=== PATIENT | male | born 1965 | race Hispanic/Latino ===

== ENCOUNTER 2017-07-05 12:20 | Inpatient (IN) | payer OTHER ==
[~2017-07-05] VITALS: Ht 170.2 cm; Wt 110.2 kg
[2017-07-05] MEDS ORDERED: SODIUM CHLORIDE 0.9% 500ML 500 ML IV STA (12:59)
[2017-07-05] MEDS ORDERED: ASPIRIN 81 MG CHEW TAB PO ONE ×2 (13:00→19:30)
[2017-07-05] MEDS ORDERED: DILTIAZEM HCL VIAL 5 ML ONE (13:09)
[2017-07-05 13:11] LABS: BASOPHILS # (AUTO) 0.1 (0.0-0.1); BASOPHILS % 0.7 % (0.0-1.0); EOSINOPHILS # (AUTO) 0.2 (0.0-0.4); EOSINOPHILS % 1.7 % (0.0-6.0); HEMATOCRIT 44.3 % (38.2-49.6); HEMOGLOBIN 12.2 g/dL (14.0-18.0); LYMPHOCYTES # (AUTO) 2.3 (1.0-3.2); LYMPHOCYTES % 20.9 % (18.0-39.1); MEAN CORPUSCULAR HEMOGLOBIN 20.6 pg (28-32); MEAN CORPUSCULAR HGB CONC 27.5 g/dL (31-35); MEAN CORPUSCULAR VOLUME 74.7 fL (81-99); MONOCYTES # (AUTO) 1.2 (0.2-0.8); MONOCYTES % 11.2 % (4.4-11.3); PLATELET COUNT 346 x10e3/uL (140-360); RED BLOOD COUNT 5.93 x10e6/uL (4.3-5.7); RED CELL DISTRIBUTION WIDTH 19.2 % (11.7-14.4)
[2017-07-05] MEDS ORDERED: DIGOXIN INJ 0.25 MG/ML 2 ML AMP ONE (13:14)
[2017-07-05] MEDS ORDERED: DILTIAZEM HCL 100 ML IV STA ×2 (13:18→18:56)
[2017-07-05] MEDS ORDERED: SODIUM CHLORIDE 0.9% 1000ML 1,000 ML ONE (13:23)
[2017-07-05 13:37] LABS: INR 0.95; PROTHROMBIN TIME 13.1 seconds (11.9-14.5)
[2017-07-05 13:38] LABS: PARTIAL THROMBOPLASTIN TIME 28.5 seconds (23.8-35.5)
[2017-07-05] MEDS ORDERED: METOPROLOL TARTRATE INJ 1 MG/ML VIAL IV ONE ×3 (13:45→20:00)
[2017-07-05 13:46] LABS: ALANINE AMINOTRANSFERASE 36 IU/L (0-55); ALBUMIN 3.1 g/dL (3.5-5.0); ALBUMIN/GLOBULIN RATIO 0.8 (0.8-2.0); ALKALINE PHOSPHATASE 95 IU/L (40-150); ANION GAP 12.4 mmol/L (8-16); BLOOD UREA NITROGEN 15 mg/dL (7-26); BUN/CREATININE RATIO 17 (6-25); CALCIUM 8.9 mg/dL (8.4-10.2); CARBON DIOXIDE 29 mmol/L (22-29); CHLORIDE 102 mmol/L (98-107); CREATINE KINASE 190 IU/L (30-200); CREATININE, SERUM 0.88 mg/dL (0.72-1.25); EST GLOMERULAR FILTRATION RATE > 60 ML/MIN (60-); GLUCOSE 78 mg/dL (74-118); LIPASE 70 U/L (8-78); POTASSIUM 4.4 mmol/L (3.5-5.1); SODIUM 139 mmol/L (136-145)
[2017-07-05 13:52] LABS: ANISOCYTOSIS SLIG; HYPOCHROMASIA MODE; PLATELET ESTIMATE ADEQUATE; PLATELET MORPHOLOGY COMMENT NORMAL; POIKILOCYTOSIS SLIGHT; POLYCHROMASIA FEW; RBC MORPHOLOGY COMMENT NORMAL; TROPONIN I 0.027 ng/mL (0-0.300)
[2017-07-05 13:53] LABS: STOMATOCYTES SLIGHT
[2017-07-05] MEDS ORDERED: DIGOXIN INJ 0.25 MG/ML 2 ML AMP IV STA (14:13)
[2017-07-05] MEDS ORDERED: DILTIAZEM HCL 5 MG/ML 5 ML VIAL IV ONE ×2 (14:15→19:00)
--- NOTE | 2017-07-05 14:18 | Diagnostic Imaging Report ---
PROCEDURE: A single AP view of the chest. COMPARISON: None. INDICATIONS: COUGH, DYSPNEA FINDINGS: Lines/tubes: None. Lungs: Limited by shallow inspiration and body habitus. No focal consolidation. Pleura: There is no pleural effusion or pneumothorax. Heart and mediastinum: Enlarged cardiomediastinal silhouette on this AP view. Bones: No acute bony abnormality. IMPRESSION: Enlarged cardiomediastinal silhouette and mild central vascular congestion, accentuated by low lung volumes and technique. No focal consolidation. Dictated by: Tristan Kong M.D. on 07/05/2017 at 14:26 Electronically approved by: Tristan Kong M.D. on 07/05/2017 at 14:26
[2017-07-05] MEDS ORDERED: ENOXAPARIN SODIUM INJ 100 MG/ML SYR SC STA (15:09)
[2017-07-05] MEDS ORDERED: DILTIAZEM HCL ER 90MG CAPSULE PO ONE (15:15)
[2017-07-05] MEDS ORDERED: ENOXAPARIN SODIUM INJ 100 MG/ML SYR SC ONE (19:00)
[2017-07-05] MEDS ORDERED: DIGOXIN INJ 0.25 MG/ML 2 ML AMP IV ONE (19:00)
[2017-07-05 20:01] LABS: % IRON SATURATION 3 % (15-50); IRON 16 ug/dL (65-175); TOTAL IRON BINDING CAPACITY 469 ug/dL (261-478); TRANSFERRIN 335 mg/dL (174-364)
[2017-07-05] MEDS: PROPAFENONE HCL 150 MG TAB PO SCH (20:27)
[2017-07-05] MEDS: DILTIAZEM HCL 100 ML IV SCH ×2 (20:32→22:27)
[2017-07-05 21:39] LABS: CREATINE KINASE MB 2.6 ng/mL (0.00-5.00); FREE THYROXINE INDEX 2.3345 (1.4-3.8); T3 UPTAKE 31.42 % (22.50-37.00); THYROID STIMULATING HORMONE 0.778 uIU/mL (0.350-4.940); TROPONIN I 0.027 ng/mL (0-0.300)
[2017-07-06] VITALS (62 sets, daily range): BP systolic 65–194; BP diastolic 27–127
[2017-07-06] MEDS: DILTIAZEM HCL 100 ML IV SCH ×5 (00:58→22:32)
[2017-07-06 01:00] LABS: BILIRUBIN,URINE NEGATIVE (NEGATIVE); KETONES,URINE NEGATIVE (NEGATIVE); LEUKOCYTE ESTERASE ,URINE NEGATIVE (NEGATIVE); NITRITE,URINE NEGATIVE (NEGATIVE); PROTEIN,URINE DIPSTICK NEGATIVE (NEGATIVE); URINE UROBILINOGEN 0.2 mg/dL (0.2 - 1)
[2017-07-06 01:01] LABS: CLARITY,URINE CLEAR (CLEAR); COLOR,URINE YELLOW (YELLOW)
[2017-07-06 01:11] LABS: BACTERIA,URINE FEW /HPF; EPITHELIAL CELLS,URINE RARE /LPF; RBC,URINE 0-5 /HPF (0-5); WBC,URINE (MAN) 0-5 /HPF (0-5)
[2017-07-06 05:56] LABS: ALANINE AMINOTRANSFERASE 32 IU/L (0-55); ALBUMIN 3.1 g/dL (3.5-5.0); ALBUMIN/GLOBULIN RATIO 0.7 (0.8-2.0); ALKALINE PHOSPHATASE 93 IU/L (40-150); ANION GAP 12.9 mmol/L (8-16); BLOOD UREA NITROGEN 14 mg/dL (7-26); BUN/CREATININE RATIO 15 (6-25); CALCIUM 8.7 mg/dL (8.4-10.2); CARBON DIOXIDE 32 mmol/L (22-29); CHLORIDE 102 mmol/L (98-107); CREATINE KINASE 192 IU/L (30-200); CREATININE, SERUM 0.91 mg/dL (0.72-1.25); EST GLOMERULAR FILTRATION RATE > 60 ML/MIN (60-); GLUCOSE 106 mg/dL (74-118); POTASSIUM 4.9 mmol/L (3.5-5.1); SODIUM 142 mmol/L (136-145)
[2017-07-06] MEDS: PROPAFENONE HCL 150 MG TAB PO SCH ×3 (05:57→21:29)
[2017-07-06 06:03] LABS: TROPONIN I 0.026 ng/mL (0-0.300)
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
[2017-07-06] MEDS ORDERED: JANUVIA100 MG PO (06:38)
[2017-07-06] MEDS ORDERED: METFORMIN HCL500 MG PO (06:38)
[2017-07-06] MEDS ORDERED: GLIMEPIRIDE2 MG PO (06:38)
[2017-07-06] MEDS ORDERED: CRESTOR10 MG PO (06:38)
[2017-07-06] MEDS ORDERED: LISINOPRIL10 MG PO (06:38)
[2017-07-06] MEDS ORDERED: ASPIR 8181 MG PO (06:38)
[2017-07-06] MEDS ORDERED: ASPIRIN 325 MG TAB EC PO SCH ×2 (09:00)
[2017-07-06] MEDS ORDERED: DILTIAZEM HCL ER 90MG CAPSULE PO SCH (09:00)
[2017-07-06] MEDS ORDERED: ASPIRIN 81 MG CHEW TAB PO SCH (09:52)
[2017-07-06] MEDS ORDERED: ETOMIDATE 2 MG/ML 10 ML INJ IV STA (13:42)
[2017-07-06] MEDS ORDERED: SUCCINYLCHOLINE 200 MG/10 ML SYR IV STA ×2 (13:42)
[2017-07-06] MEDS ORDERED: PROPOFOL IV EMULSION 10MG/ML 100 ML ONE (13:44)
[2017-07-06] MEDS ORDERED: MIDAZOLAM HCL 2 MG/2 ML VIAL IV STA (13:45)
[2017-07-06 13:49] LABS: ABG HCO3 34 mmol/L (23-28); ABG PCO2 84 mmHg (41-51); ABG PH 7.21 (7.31-7.41); ABG PO2 81 mmHg (80-105)
[2017-07-06] MEDS ORDERED: MIDAZOLAM HCL 2 MG/2 ML VIAL ONE (13:54)
[2017-07-06] MEDS ORDERED: PROPOFOL IV EMULSION 10 MG/ML 50 ML VIAL IV PRN (14:00)
[2017-07-06] MEDS: PROPOFOL IV EMULSION 10MG/ML 100 ML IV PRN ×4 (14:33→22:25)
--- NOTE | 2017-07-06 14:47 | Diagnostic Imaging Report ---
PROCEDURE: A single AP view of the chest. COMPARISON: Chest x-ray 07/05/2017 1359. INDICATIONS: ET TUBE PLACEMENT FINDINGS: Lines/tubes: ET tube tip is approximate 1.9 cm from the don. Lungs: Lungs are hypoinflated. Worsening perihilar interstitial opacities. Pleura: There is no pleural effusion or pneumothorax. Heart and mediastinum: Mild cardiomegaly. Bones: No acute bony abnormality. IMPRESSION: 1. Low-lying ET tube with tip 1.9 cm from the don. 2. Worsening interstitial edema. Dictated by: Tal Peña M.D. on 07/06/2017 at 14:55 Electronically approved by: Tal Peña M.D. on 07/06/2017 at 14:55
[2017-07-06 15:06] LABS: CHOL/HDL RATIO 4.5 (3.9-4.7)
[2017-07-06] MEDS: LEVOFLOXACIN 500MG/D5W 100ML 100 ML IV SCH (15:28)
[2017-07-06] MEDS: RIVAROXABAN 20 MG TABLET PO SCH (15:29)
[2017-07-06] MEDS: FAMOTIDINE 20 MG/2 ML VIAL IV SCH (15:29)
[2017-07-06 15:46] LABS: TROPONIN I 0.028 ng/mL (0-0.300)
[2017-07-06] MEDS ORDERED: VANCOMYCIN 1GM/NS 250 ML 250 ML IV ONE (16:00)
--- NOTE | 2017-07-06 16:02 | History and Physical ---
PRIMARY CARE PHYSICIAN: Unknown. CHIEF COMPLAINT: Chest palpitations and shortness of breath. HISTORY OF PRESENT ILLNESS: This is a 51-year-old man who developed chest palpitations and shortness of breath. Here he was found to be in atrial fibrillation with rapid ventricular response. He was started on Cardizem drip in the emergency room. The patient had worsening mental status and worsening shortness of breath. ABG revealed pCO2 of 84 and pH of 7.21. He was intubated, and he was admitted for further evaluation and management. No further history is available at this time. Review of the chest x-ray suggests pneumonia and pulmonary edema. PAST MEDICAL HISTORY: Diabetes mellitus, type 2; hypertension; hyperlipidemia. PAST SURGICAL HISTORY: Unknown. ALLERGIES: PER ELECTRONIC MEDICAL RECORD. FAMILY HISTORY AND SOCIAL HISTORY: Unknown. MEDICATIONS: Per electronic medical record. REVIEW OF SYSTEMS: Unobtainable. PHYSICAL EXAMINATION VITAL SIGNS: Have been reviewed. GENERAL: A tired-appearing man resting in bed. Intubated. HEENT: Anicteric. He has an ET tube in place with some froth at the mouth. CARDIOVASCULAR: Normal S1 and S2. Rapid heart rate. LUNGS: He has very coarse, reduced breath sounds throughout. ABDOMEN: Soft, large. EXTREMITIES: Trace edema. SKIN: Dry. PSYCHIATRIC: Unable to assess. LABS: Reviewed. MEDICATIONS: Reviewed. ASSESSMENT AND PLAN: This is a 51-year-old man. 1. Atrial fibrillation with rapid ventricular response. Echocardiogram done showed normal left ventricular ejection fraction. Will follow up official report. Will continue Cardizem and defer to cardiology service. 2. Acute respiratory failure. He is intubated. Vent care per pulmonary service. 3. Pneumonia. Will utilize Levaquin and obtain sputum culture and follow up. 4. Diabetes mellitus, type 2. Obtain hemoglobin A1c and lipid panel. 5. Hypertension/hypotension. The patient is actually hypotensive with signs of sepsis. He has pneumonia, hypotension and rapid heart rate. These are signs of severe sepsis. He has respiratory failure. Will treat him with antibiotics. Will give 1 dose of IV vancomycin. Monitor closely. Will obtain labs again later today. 6. Prophylaxis: The patient is on Xarelto. Will add Pepcid. 7. Disposition: Monitor closely. Critical care time more than 35 minutes. Job#: [id number]
[2017-07-06 16:24] LABS: ABG HCO3 33 mmol/L (23-28); ABG PCO2 67 mmHg (41-51); ABG PO2 117 mmHg (80-105)
[2017-07-06] MEDS ORDERED: FUROSEMIDE INJ 10 MG/ML 4 ML VIAL IV ONE (20:00)
[2017-07-06 20:29] LABS: BASOPHILS # (AUTO) 0.1 (0.0-0.1); BASOPHILS % 0.6 % (0.0-1.0); EOSINOPHILS # (AUTO) 0.2 (0.0-0.4); EOSINOPHILS % 2.3 % (0.0-6.0); HEMATOCRIT 41.7 % (38.2-49.6); HEMOGLOBIN 11.3 g/dL (14.0-18.0); LYMPHOCYTES # (AUTO) 1.6 (1.0-3.2); LYMPHOCYTES % 19.2 % (18.0-39.1); MEAN CORPUSCULAR HEMOGLOBIN 20.4 pg (28-32); MEAN CORPUSCULAR HGB CONC 27.1 g/dL (31-35); MEAN CORPUSCULAR VOLUME 75.3 fL (81-99); MONOCYTES # (AUTO) 0.9 (0.2-0.8); MONOCYTES % 10.6 % (4.4-11.3); NEUTROPHILS # (AUTO) 5.5 (2.1-6.9); NEUTROPHILS % 67.1 % (38.7-80.0); PLATELET COUNT 302 x10e3/uL (140-360); RED BLOOD COUNT 5.54 x10e6/uL (4.3-5.7); RED CELL DISTRIBUTION WIDTH 19.3 % (11.7-14.4)
[2017-07-06 20:43] LABS: ANION GAP 15.3 mmol/L (8-16); BLOOD UREA NITROGEN 13 mg/dL (7-26); BUN/CREATININE RATIO 17 (6-25); CALCIUM 8.5 mg/dL (8.4-10.2); CARBON DIOXIDE 27 mmol/L (22-29); CHLORIDE 102 mmol/L (98-107); CREATININE, SERUM 0.75 mg/dL (0.72-1.25); EST GLOMERULAR FILTRATION RATE > 60 ML/MIN (60-); GLUCOSE 70 mg/dL (74-118); POTASSIUM 4.3 mmol/L (3.5-5.1); SODIUM 140 mmol/L (136-145)
[2017-07-06] MEDS: FENTANYL CITRATE INJ 2,000 MCG in SODIUM CHLORIDE 0.9% 250ML 210 ML IV PRN ×3 (20:49→22:27)
--- NOTE | 2017-07-06 21:09 | Diagnostic Imaging Report ---
Portable chest x-ray CPT code 02122 INDICATION: Tube placement COMPARISON: Chest x-ray 1401 hours FINDINGS: Frontal view of the chest obtained at 2041 hours. The image is underpenetrated. The distal tip of the ET tube is not visible. An enteric tube extends past the diaphragm. The cardiac silhouette is enlarged. There are worsening perihilar airspace opacities. Lung volumes are low. No large effusions. There is no pneumothorax. The osseous structures are stable. IMPRESSION: 1. Poor visualization of ET tube due to underpenetration of the image. 2. Worsening perihilar airspace opacities. Signed by: Dr. Gail Grove MD on 07/06/2017 9:05 PM
[2017-07-06] MEDS: SIMVASTATIN 40 MG TAB PO SCH (21:29)
[2017-07-06] MEDS: OSELTAMIVIR PHOSPHATE 75 MG CAP PO SCH (21:29)
[2017-07-06 21:38] LABS: HYPOCHROMASIA MODERATE
[2017-07-06 21:39] LABS: POIKILOCYTOSIS T
[2017-07-06 21:40] LABS: ANISOCYTOSIS MODERATE; PLATELET ESTIMATE ADEQUATE; PLATELET MORPHOLOGY COMMENT NORMAL; RBC MORPHOLOGY COMMENT ABNORMAL
--- NOTE | 2017-07-06 21:43 | Consultation ---
DATE OF CONSULTATION: July 06, 2017 Primary care physician: Dr. Jh Jiang. REASON FOR CONSULTATION: Ventilator management. HISTORY OF PRESENT ILLNESS: Mr. Jiang is a 51-year-old male who was sent in by his primary care physician for chest pain, palpitations and shortness of breath. He was found to be in atrial fibrillation and rapid ventricular response. Cardiology evaluated the patient and rate came under control. He was started on Cardizem drip. Patient had worsening mental status and shortness of breath. ABGs revealed pCO2 84 and pH of 7.1 and he was intubated in the emergency room. Patient is obese and body habitus is highly suggestive that patient has sleep apnea. He is currently sedated and intubated and unable to give me any history. REVIEW OF SYSTEMS: Unable to elicit any as the patient is sedated and intubated. PAST MEDICAL HISTORY: Morbid obesity, hypertension, diabetes and likely has history of sleep apnea and I am unsure if it is diagnosed as there is no past medical history available here. PAST SURGICAL HISTORY: Unknown. FAMILY AND SOCIAL HISTORY: Unknown. Unknown history of smoking. PHYSICAL EXAMINATION: VITALS: Temperature 98.7, pulse of 90, blood pressure 103/69, respiratory rate is 18. O2 sat is 96%. Right now he is on FIO2 100%, PEEP of 5, tidal volume of 550 at rate of 16. HEENT: Head atraumatic and normocephalic. Pupils are reactive. NECK: Supple. No JVD. He is intubated with ET tube 8. CHEST: Is clear to auscultation bilaterally, occasional crackles. HEART: S1 and S2 audible. ABDOMEN: Soft, nontender, nondistended. EXTREMITIES: Extremities with 1+ pedal edema. NEUROLOGIC: Sedated and intubated. LABORATORY DATA: White count of 10,000, hemoglobin 12.8, platelets 346,000. Blood gases pH of 7.21, pCO2 of 84, pO2 of 81, bicarb 34. The repeat one at 2 p.m. showed pCO2 of 67. Chest x-ray reviewed and it is showing increased congestion but no focal infiltrate or consolidation. ASSESSMENT AND PLAN: David Jiang is a 51-year-old male, morbidly obese with body habitus highly suggestive of patient having obstructive sleep apnea, was intubated for acute hypercapnic respiratory failure. Chest x-ray revealed no focal infiltrate; however, revealed interstitial edema. Bicarbonate on the initial chemistry was 29, slightly on the higher side which showed that probably patient has chronic hypercapnic respiratory failure. CURRENT PROBLEMS: 1. Acute on chronic hypercapnic respiratory failure, likely due to underlying sleep apnea versus obesity, hyperventilation with no evidence of pneumonia on chest x-ray. 2. Atrial fibrillation with rapid ventricular response. Echocardiogram is done and cardiology is following the patient. 3. Hypertension. 4. Diabetes. PLAN: 1. I will start the patient on fentanyl infusion. He is currently on propofol. 2. Will add Tamiflu and send off influenza antigen. 3. Currently he is on Levaquin which will be continued. 4. Atrial fibrillation management per cardiology. 5. Ventilator setting reviewed. It will reduce the FIO2 to 80%, PEEP to 8 and I have asked the respiratory therapist to wean the FIO2 to keep the oxygen saturation more than or equal to 92%. Total care time spent 50 minutes. Job#: [id number]
[2017-07-07] VITALS (22 sets, daily range): BP systolic 92–154; BP diastolic 60–97
[2017-07-07] MEDS: DILTIAZEM HCL 100 ML IV SCH ×3 (01:17→11:10)
[2017-07-07 01:35] LABS: ABG HCO3 31 mmol/L (23-28); ABG PCO2 44 mmHg (41-51); ABG PH 7.46 (7.31-7.41); ABG PO2 61 mmHg (80-105)
[2017-07-07 01:39] LABS: ABG PH 7.46 (7.31-7.41)
[2017-07-07] MEDS: PROPOFOL IV EMULSION 10MG/ML 100 ML IV PRN ×2 (02:22→02:40)
[2017-07-07] MEDS: PROPAFENONE HCL 150 MG TAB PO SCH ×3 (05:30→22:00)
[2017-07-07] MEDS: FENTANYL CITRATE INJ 2,000 MCG in SODIUM CHLORIDE 0.9% 250ML 210 ML IV PRN (08:05)
[2017-07-07] MEDS: OSELTAMIVIR PHOSPHATE 75 MG CAP PO SCH ×2 (09:00→17:00)
[2017-07-07] MEDS: ASPIRIN 81 MG CHEW TAB PO SCH (09:00)
[2017-07-07] MEDS: FAMOTIDINE 20 MG/2 ML VIAL IV SCH ×2 (09:00→17:00)
[2017-07-07] MEDS: FUROSEMIDE INJ 10 MG/ML 4 ML VIAL IV SCH ×2 (10:05→22:00)
[2017-07-07] MEDS ORDERED: METOPROLOL TARTRATE INJ 1 MG/ML VIAL IV ONE (10:15)
[2017-07-07] MEDS ORDERED: DEXMEDETOMIDINE HCL 200 MCG in SODIUM CHLORIDE 0.9% 50ML 48 ML IV PRN (10:15)
[2017-07-07 10:29] LABS: ANION GAP 14.6 mmol/L (8-16); BLOOD UREA NITROGEN 18 mg/dL (7-26); BUN/CREATININE RATIO 20 (6-25); CALCIUM 8.9 mg/dL (8.4-10.2); CARBON DIOXIDE 29 mmol/L (22-29); CHLORIDE 100 mmol/L (98-107); CREATININE, SERUM 0.91 mg/dL (0.72-1.25); EST GLOMERULAR FILTRATION RATE > 60 ML/MIN (60-); GLUCOSE 107 mg/dL (74-118); POTASSIUM 4.6 mmol/L (3.5-5.1); SODIUM 139 mmol/L (136-145)
[2017-07-07] MEDS ORDERED: PROPAFENONE HCL 150 MG TAB PO SCH (10:30)
--- NOTE | 2017-07-07 11:01 | Cardiology Report ---
DATE OF STUDY: July 05, 2017 ECHOCARDIOGRAM M-MODE: Dilated left atrium. Left ventricular hypertrophy. Borderline left ventricular contractility. Normal mitral and aortic valves. No pericardial effusion. SECTOR SCAN: Dilated left atrium. Left ventricular hypertrophy. Mildly diminished left ventricular contractility. Ejection fraction is approximately 45%. Mitral, aortic and tricuspid valves are grossly normal. There is no pericardial effusion. CARDIAC DOPPLER STUDY WITH COLOR: Trace tricuspid regurgitation. Pulmonary artery systolic pressure estimated at 26 mmHg. CONCLUSIONS 1. Left ventricular hypertrophy with ejection fraction of approximately 45%. 2. Mildly enlarged left atrium, measuring approximately 4.3 cm. Job#: [id number] cc:NICOLAS HERNANDEZ MD
[2017-07-07] MEDS: DEXMEDETOMIDINE HCL 200 MCG in SODIUM CHLORIDE 0.9% 50ML 48 ML IV PRN ×4 (11:15→23:00)
[2017-07-07] MEDS ORDERED: ETOMIDATE 40 MG/ 20ML VIAL IV ONE (14:00)
[2017-07-07] MEDS ORDERED: SUCCINYLCHOLINE CHLORIDE 20 MG/ML 10ML VIAL ONE (14:00)
[2017-07-07 14:34] LABS: ABG HCO3 33 mmol/L (23-28); ABG PCO2 69 mmHg (41-51); ABG PH 7.29 (7.31-7.41); ABG PO2 66 mmHg (80-105)
[2017-07-07] MEDS: LEVOFLOXACIN 500MG/D5W 100ML 100 ML IV SCH (14:45)
[2017-07-07] MEDS: RIVAROXABAN 20 MG TABLET PO SCH (17:00)
--- NOTE | 2017-07-07 21:41 | Diagnostic Imaging Report ---
EXAM: CHEST SINGLE (PORTABLE), AP 1 view DATE: 07/07/2017 5:00 AM Time stamp on exam: 0552 hours INDICATION: Intubated COMPARISON: AP view of the chest July 06, 2017 FINDINGS: LINES/TUBES: Endotracheal tube terminates 3 cm above the don. Nasal/orogastric tube courses below the diaphragm out of field of view. LUNGS: Stable bilateral perihilar atelectasis and likely pulmonary edema. PLEURA: Indeterminate for layering pleural effusions. HEART AND MEDIASTINUM: Stable enlargement of the cardiomediastinal silhouette. BONES AND SOFT TISSUES: No acute findings. IMPRESSION: No interval change. Signed by: Dr. Debbie Becerra M.D. on 07/07/2017 9:37 PM
[2017-07-07] MEDS: SIMVASTATIN 40 MG TAB PO SCH (22:00)
[2017-07-08] VITALS (55 sets, daily range): BP systolic 91–143; BP diastolic 36–92
--- NOTE | 2017-07-08 00:24 | Progress Note ---
DATE: July 07, 2017 TIME OF SERVICE: 6:30 a.m. Overnight, no events. REVIEW OF SYSTEMS: Unobtainable. PHYSICAL EXAM VITAL SIGNS: Reviewed. GENERAL: A tired-appearing man resting in bed. HEENT: Anicteric. ET tube in place. CARDIOVASCULAR: Normal S1/S2. LUNGS: Coarse breath sounds. ABDOMEN: Soft, nontender, nondistended. EXTREMITIES: Trace edema. SKIN: Dry. PSYCHIATRIC: Unable to assess. LABS: Reviewed. MEDICATIONS: Reviewed. ASSESSMENT: A 51-year-old man with 1. Atrial fibrillation with rapid ventricular response. 2. Acute respiratory failure. 3. Pneumonia. 4. Diabetes mellitus, type 2. 5. Hypertension/hypotension. PLAN 1. Continue vent per pulmonary services. 2. Continue AV blocking agents. 3. Treatment for pneumonia. 4. Follow up cultures. 5. Continue Xarelto. 6. Discontinue Tamiflu as flu screening was negative. 7. Continue care in the ICU. CRITICAL CARE TIME: More than 35 minutes. Job#: [id number] CQ
[2017-07-08] MEDS: PROPOFOL IV EMULSION 10MG/ML 100 ML IV PRN (01:00)
[2017-07-08 05:47] LABS: BASOPHILS % 0.3 % (0.0-1.0); EOSINOPHILS # (AUTO) 0.1 (0.0-0.4); EOSINOPHILS % 0.4 % (0.0-6.0); HEMATOCRIT 41.7 % (38.2-49.6); LYMPHOCYTES # (AUTO) 1.3 (1.0-3.2); LYMPHOCYTES % 9.7 % (18.0-39.1); MEAN CORPUSCULAR HEMOGLOBIN 20.8 pg (28-32); MEAN CORPUSCULAR HGB CONC 28.8 g/dL (31-35); MEAN CORPUSCULAR VOLUME 72.4 fL (81-99); MONOCYTES # (AUTO) 1.5 (0.2-0.8); MONOCYTES % 11.3 % (4.4-11.3); NEUTROPHILS # (AUTO) 10.4 (2.1-6.9); NEUTROPHILS % 77.8 % (38.7-80.0); PLATELET COUNT 300 x10e3/uL (140-360); RED BLOOD COUNT 5.76 x10e6/uL (4.3-5.7); RED CELL DISTRIBUTION WIDTH 19.6 % (11.7-14.4)
[2017-07-08 05:58] LABS: ANION GAP 14.8 mmol/L (8-16); BLOOD UREA NITROGEN 17 mg/dL (7-26); BUN/CREATININE RATIO 19 (6-25); CALCIUM 8.7 mg/dL (8.4-10.2); CARBON DIOXIDE 27 mmol/L (22-29); CHLORIDE 99 mmol/L (98-107); CREATININE, SERUM 0.91 mg/dL (0.72-1.25); EST GLOMERULAR FILTRATION RATE > 60 ML/MIN (60-); GLUCOSE 155 mg/dL (74-118); POTASSIUM 3.8 mmol/L (3.5-5.1); SODIUM 137 mmol/L (136-145)
--- NOTE | 2017-07-08 06:52 | Diagnostic Imaging Report ---
EXAM: CHEST SINGLE (PORTABLE), AP 1 view DATE: 07/08/2017 5:48 AM Time stamp on exam: 0552 hours INDICATION: Intubated COMPARISON: AP view of the chest July 07, 2017 FINDINGS: LINES/TUBES: Stable endotracheal tube and nasal/orogastric tube. LUNGS: Stable bilateral perihilar atelectasis and likely pulmonary edema PLEURA: Indeterminate for layering pleural effusions bilaterally HEART AND MEDIASTINUM: Stable enlargement BONES AND SOFT TISSUES: No acute findings. IMPRESSION: No interval change Signed by: Dr. Debbie Becerra M.D. on 07/08/2017 6:48 AM
[2017-07-08 07:59] LABS: LYMPHOCYTES % (MANUAL) 6 % (19-48); MONOCYTES % (MANUAL) 10 % (3.4-9.0); NEUTROPHILS % (MANUAL) 82 % (40-74)
[2017-07-08 08:04] LABS: ANISOCYTOSIS SLIGHT; POLYCHROMASIA FEW
[2017-07-08 08:05] LABS: HYPOCHROMASIA SLIGHT; PLATELET ESTIMATE ADEQUATE; PLATELET MORPHOLOGY COMMENT NORMAL
[2017-07-08 08:06] LABS: RBC MORPHOLOGY COMMENT NORMAL
[2017-07-08] MEDS: FUROSEMIDE INJ 10 MG/ML 4 ML VIAL IV SCH ×3 (09:00→22:06)
[2017-07-08] MEDS: OSELTAMIVIR PHOSPHATE 75 MG CAP PO SCH ×2 (09:00→16:30)
[2017-07-08] MEDS: ASPIRIN 81 MG CHEW TAB PO SCH (09:00)
[2017-07-08] MEDS: FAMOTIDINE 20 MG/2 ML VIAL IV SCH ×2 (09:00→17:00)
[2017-07-08] MEDS: DEXMEDETOMIDINE HCL 200 MCG in SODIUM CHLORIDE 0.9% 50ML 48 ML IV PRN ×2 (09:04→18:00)
[2017-07-08] MEDS: DILTIAZEM HCL 100 ML IV SCH ×2 (10:00→13:00)
[2017-07-08] MEDS ORDERED: DEXTROSE 50% SYRINGE 50 ML IV PRN (11:45)
[2017-07-08] MEDS ORDERED: ACETAMINOPHEN 325 MG TAB ONE (12:06)
[2017-07-08 12:13] LABS: ABG HCO3 32 mmol/L (23-28); ABG PCO2 40 mmHg (41-51); ABG PO2 57 mmHg (80-105)
[2017-07-08] MEDS: AZITHROMYCIN 500MG/NS 250 ML 250 ML IV SCH (12:20)
[2017-07-08] MEDS: ACETAMINOPHEN 325 MG TAB PO PRN ×2 (12:20→22:58)
[2017-07-08] MEDS: INSULIN REGULAR, HUMAN 100 UNIT/1 ML 3ML VIAL SQ SCH ×2 (12:30→18:09)
[2017-07-08] MEDS: PIPER-TAZ 3.375 GM 50 ML IV SCH ×2 (13:30→22:06)
[2017-07-08] MEDS: PROPAFENONE HCL 150 MG TAB PO SCH ×2 (14:00→22:06)
[2017-07-08] MEDS ORDERED: INSULIN REGULAR, HUMAN 100 UNIT/1 ML 3ML VIAL SQ SCH (16:30)
[2017-07-08] MEDS: RIVAROXABAN 20 MG TABLET PO SCH (16:30)
[2017-07-08] MEDS ORDERED: SODIUM CHLORIDE 0.9% 50ML 50 ML ONE (21:15)
[2017-07-08] MEDS: SIMVASTATIN 40 MG TAB PO SCH (22:06)
--- NOTE | 2017-07-08 22:22 | Diagnostic Imaging Report ---
EXAM: CHEST XRAY LINE PLACEMENT, AP 1 view DATE: 07/08/2017 9:20 PM Time stamp on exam: 2148 hours INDICATION: PICC placement COMPARISON: AP view of the chest May 08, 2018 at 0552 hours FINDINGS: LINES/TUBES: Interval placement of right approach PICC with the tip at expected location of the atriocaval junction. Stable endotracheal tube and nasal/orogastric tube. LUNGS: Stable bilateral perihilar atelectasis and likely pulmonary edema area and PLEURA: No effusions or pneumothorax. HEART AND MEDIASTINUM: Stable BONES AND SOFT TISSUES: No acute findings. IMPRESSION: Interval placement of right approach PICC with tip at expected location of the atriocaval junction. Otherwise no interval change in appearance of the chest. Signed by: Dr. Debbie Becerra M.D. on 07/08/2017 10:19 PM
[2017-07-09] VITALS (68 sets, daily range): BP systolic 61–124; BP diastolic 22–87
[2017-07-09] MEDS: INSULIN REGULAR, HUMAN 100 UNIT/1 ML 3ML VIAL SQ SCH ×4 (00:31→18:00)
[2017-07-09] MEDS: DILTIAZEM HCL 100 ML IV SCH (01:18)
[2017-07-09] MEDS: DEXMEDETOMIDINE HCL 200 MCG in SODIUM CHLORIDE 0.9% 50ML 48 ML IV PRN ×2 (01:18→13:29)
[2017-07-09] MEDS: PIPER-TAZ 3.375 GM 50 ML IV SCH ×3 (04:34→20:00)
[2017-07-09] MEDS: FUROSEMIDE INJ 10 MG/ML 4 ML VIAL IV SCH ×3 (05:04→22:00)
[2017-07-09] MEDS: PROPAFENONE HCL 150 MG TAB PO SCH ×3 (05:05→22:00)
[2017-07-09 05:37] LABS: BASOPHILS # (AUTO) 0.1 (0.0-0.1); BASOPHILS % 0.3 % (0.0-1.0); EOSINOPHILS # (AUTO) 0.1 (0.0-0.4); EOSINOPHILS % 0.5 % (0.0-6.0); HEMATOCRIT 42.7 % (38.2-49.6); HEMOGLOBIN 11.9 g/dL (14.0-18.0); LYMPHOCYTES # (AUTO) 1.7 (1.0-3.2); LYMPHOCYTES % 11.2 % (18.0-39.1); MEAN CORPUSCULAR HEMOGLOBIN 20.4 pg (28-32); MEAN CORPUSCULAR HGB CONC 27.9 g/dL (31-35); MEAN CORPUSCULAR VOLUME 73.2 fL (81-99); MONOCYTES # (AUTO) 1.7 (0.2-0.8); MONOCYTES % 11.2 % (4.4-11.3); NEUTROPHILS # (AUTO) 11.6 (2.1-6.9); NEUTROPHILS % 75.1 % (38.7-80.0); PLATELET COUNT 255 x10e3/uL (140-360); RED BLOOD COUNT 5.83 x10e6/uL (4.3-5.7); RED CELL DISTRIBUTION WIDTH 19.8 % (11.7-14.4)
[2017-07-09 06:01] LABS: ANION GAP 14.4 mmol/L (8-16); BLOOD UREA NITROGEN 18 mg/dL (7-26); BUN/CREATININE RATIO 18 (6-25); CARBON DIOXIDE 31 mmol/L (22-29); CHLORIDE 98 mmol/L (98-107); CREATININE, SERUM 0.99 mg/dL (0.72-1.25); EST GLOMERULAR FILTRATION RATE > 60 ML/MIN (60-); GLUCOSE 177 mg/dL (74-118); MAGNESIUM 1.9 MG/DL (1.3-2.1); POTASSIUM 3.4 mmol/L (3.5-5.1); SODIUM 140 mmol/L (136-145)
[2017-07-09] MEDS: OSELTAMIVIR PHOSPHATE 75 MG CAP PO SCH ×2 (08:57→16:34)
[2017-07-09] MEDS: FAMOTIDINE 20 MG/2 ML VIAL IV SCH ×2 (08:57→16:33)
[2017-07-09] MEDS: ASPIRIN 81 MG CHEW TAB PO SCH (08:57)
[2017-07-09] MEDS ORDERED: POTASSIUM CHLORIDE 10MEQ/100ML 100 ML IV ONE (10:45)
[2017-07-09] MEDS: AZITHROMYCIN 500MG/NS 250 ML 250 ML IV SCH (11:30)
[2017-07-09 12:49] LABS: ABG HCO3 35 mmol/L (23-28); ABG PCO2 46 mmHg (41-51); ABG PH 7.48 (7.31-7.41); ABG PO2 54 mmHg (80-105)
[2017-07-09] MEDS: PROPOFOL IV EMULSION 10MG/ML 100 ML IV PRN (13:30)
--- NOTE | 2017-07-09 14:52 | Diagnostic Imaging Report ---
PROCEDURE: CT scan of the chest WITH intravenous contrast, using standard protocol. TECHNIQUE: The chest was scanned utilizing a multidetector helical scanner from the lung apex through the level of the adrenal glands after the IV administration of 55 cc of Isovue 370. Coronal and sagittal multiplanar reformations were obtained. COMPARISON: None. INDICATIONS: PULMONARY EMBOLISM FINDINGS: Lines/tubes: Endotracheal tube has distal tip approximately 3.9 cm above the don. Enteric tube in place, with distal tip in the proximal stomach fundus. Right-sided PICC line has distal tip in the right atrium. Lungs and Airways: No filling defects in the main, right or left pulmonary arteries to their segmental levels to suggest pulmonary embolism. Bilateral lower lobe moderate compressive atelectasis and mild compressive atelectasis of the right upper lobe. Focal ground glass opacity in the right upper lobe (for example series 3, images 34). Linear opacities in the right upper lobe (series 3, image 40). No pulmonary nodules. Mild centrilobular septal thickening in the upper lobes. Airways are clear, without endobronchial lesions. Pleura: Small to moderate right and small left pleural effusions. Heart and mediastinum: Thyroid is unremarkable. Moderate cardiomegaly. Mild atherosclerotic calcification of the coronary arteries and minimal calcification of the thoracic aortic arch. Main pulmonary artery is enlarged, measuring 3.6 cm. Lymph nodes: Several mildly prominent, although subcentimeter upper paratracheal, and lower paratracheal lymph nodes are identified. No enlarged mediastinal, hilar or axillary lymph nodes.. Abdomen: Limited contrast-enhanced views of the upper abdomen show no abnormality within the visualized liver and spleen. Adrenal glands are not imaged. Bones: No aggressive lytic or blastic lesion. Multilevel degenerative disc changes in the thoracic spine. IMPRESSION: 1. no CT evidence of pulmonary embolism to the segmental level. 2. Small to moderate right and small left pleural effusions with moderate compressive atelectasis of the lower lobes and mild compressive atelectasis of the right upper lobe. 3. Moderate cardiomegaly. Mild centrilobular septal thickening and focal ground glass opacities in the right upper lobe may be secondary to edema/fluid overload/decompensated CHF. 4. Enlarged main pulmonary artery, suggesting pulmonary hypertension. 5. Subcentimeter lymph nodes in the mediastinum are likely reactive. No enlarged mediastinal, hilar, or axillary lymph nodes. 6. Enteric tube has distal tip in the proximal fundus. Further advancement is recommended. Ernesto Jeffers M.D. Dictated by: Ernesto Jeffers M.D. on 07/09/2017 at 15:00 Electronically approved by: Ernesto Jeffers M.D. on 07/09/2017 at 15:00
[2017-07-09] MEDS ORDERED: DIGOXIN INJ 0.25 MG/ML 2 ML AMP IV ONE (16:30)
[2017-07-09] MEDS: RIVAROXABAN 20 MG TABLET PO SCH (16:34)
[2017-07-09] MEDS ORDERED: PROPAFENONE HCL 150 MG TAB PO ONE (16:45)
[2017-07-09] MEDS ORDERED: PROPOFOL IV EMULSION 10MG/ML 100 ML ONE (18:55)
[2017-07-09] MEDS ORDERED: DILTIAZEM HCL IV SOLN 125 MG in SODIUM CHLORIDE 0.9% 100 ML 100 ML IV PRN (19:45)
[2017-07-09] MEDS: SIMVASTATIN 20 MG TAB PO SCH (21:00)
[2017-07-09] MEDS ORDERED: SODIUM CHLORIDE 0.9% 50ML 50 ML ONE (21:44)
[2017-07-09] MEDS ORDERED: IOPAMIDOL 370 MG/ML 200 ML INFUS..BTL INJ ONE (21:44)
[2017-07-10] VITALS (48 sets, daily range): BP systolic 94–125; BP diastolic 44–97
[2017-07-10 05:23] LABS: BASOPHILS # (AUTO) 0.1 (0.0-0.1); BASOPHILS % 0.6 % (0.0-1.0); EOSINOPHILS # (AUTO) 0.3 (0.0-0.4); EOSINOPHILS % 2.4 % (0.0-6.0); HEMATOCRIT 43.7 % (38.2-49.6); HEMOGLOBIN 12.1 g/dL (14.0-18.0); LYMPHOCYTES # (AUTO) 1.7 (1.0-3.2); LYMPHOCYTES % 12.3 % (18.0-39.1); MEAN CORPUSCULAR HEMOGLOBIN 20.5 pg (28-32); MEAN CORPUSCULAR HGB CONC 27.7 g/dL (31-35); MEAN CORPUSCULAR VOLUME 74.2 fL (81-99); MONOCYTES # (AUTO) 1.4 (0.2-0.8); MONOCYTES % 10.2 % (4.4-11.3); NEUTROPHILS # (AUTO) 10.1 (2.1-6.9); NEUTROPHILS % 74.1 % (38.7-80.0); PLATELET COUNT 240 x10e3/uL (140-360); RED BLOOD COUNT 5.89 x10e6/uL (4.3-5.7); RED CELL DISTRIBUTION WIDTH 19.8 % (11.7-14.4)
[2017-07-10 05:43] LABS: ANION GAP 15.5 mmol/L (8-16); BLOOD UREA NITROGEN 22 mg/dL (7-26); BUN/CREATININE RATIO 20 (6-25); CALCIUM 9.4 mg/dL (8.4-10.2); CARBON DIOXIDE 32 mmol/L (22-29); CHLORIDE 98 mmol/L (98-107); CREATININE, SERUM 1.12 mg/dL (0.72-1.25); EST GLOMERULAR FILTRATION RATE > 60 ML/MIN (60-); GLUCOSE 155 mg/dL (74-118); MAGNESIUM 1.9 MG/DL (1.3-2.1); POTASSIUM 3.5 mmol/L (3.5-5.1); SODIUM 142 mmol/L (136-145)
[2017-07-10] MEDS: PIPER-TAZ 3.375 GM 50 ML IV SCH ×3 (05:56→20:00)
[2017-07-10] MEDS: FUROSEMIDE INJ 10 MG/ML 4 ML VIAL IV SCH ×3 (05:56→23:30)
[2017-07-10] MEDS: PROPAFENONE HCL 150 MG TAB PO SCH ×2 (05:57→14:54)
[2017-07-10] MEDS: INSULIN REGULAR, HUMAN 100 UNIT/1 ML 3ML VIAL SQ SCH ×4 (06:37→18:18)
[2017-07-10] MEDS ORDERED: ALTEPLASE RECOMBINANT 2 MG/2 ML VIAL IV PRN (08:00)
[2017-07-10] MEDS: FAMOTIDINE 20 MG/2 ML VIAL IV SCH ×2 (09:04→18:23)
[2017-07-10] MEDS: ASPIRIN 81 MG CHEW TAB PO SCH (09:04)
[2017-07-10] MEDS: OSELTAMIVIR PHOSPHATE 75 MG CAP PO SCH ×2 (09:04→17:00)
[2017-07-10] MEDS ORDERED: DIGOXIN INJ 0.25 MG/ML 2 ML AMP ONE (09:38)
[2017-07-10] MEDS ORDERED: DIGOXIN INJ 0.25 MG/ML 2 ML AMP IV ONE (10:00)
[2017-07-10] MEDS: AZITHROMYCIN 500MG/NS 250 ML 250 ML IV SCH (11:30)
[2017-07-10] MEDS ORDERED: MIDAZOLAM HCL 2 MG/2 ML VIAL ONE (11:54)
[2017-07-10] MEDS: MIDAZOLAM HCL 2 MG/2 ML VIAL IV PRN ×2 (12:00→12:02)
[2017-07-10] MEDS: VANCOMYCIN 1GM/NS 250 ML 250 ML IV SCH (12:49)
[2017-07-10] MEDS: DEXMEDETOMIDINE HCL 200 MCG in SODIUM CHLORIDE 0.9% 50ML 48 ML IV PRN (12:50)
--- NOTE | 2017-07-10 13:12 | Operative Report ---
DATE OF PROCEDURE: ATTENDING PHYSICIAN: Dr. Butts PROCEDURE: Cardioversion. INDICATIONS: Atrial fibrillation with rapid ventricular response. The patient is on the ventilator and has propofol, although he is moderately awake. Consent is obtained for elective cardioversion. Patches were placed on his chest and back. He was given an additional total of 4 mg of Versed. With respiratory therapy bagging his endotracheal tube, he was given a single shock of 120 joules synchronized with successful cardioversion to sinus rhythm. Post EKG shows sinus rhythm without any ST or T changes. He will continue his previous medications of Rythmol, Xarelto and Cardizem drip. ASSESSMENT 1. Successful cardioversion to sinus rhythm. 2. No complications. The patient is waking up now and seems intact. Job#: [id number] cc:MD JAYDEN BOYLE M.D. MING JEANG, MD
[2017-07-10] MEDS: PROPOFOL IV EMULSION 10MG/ML 100 ML IV PRN (14:54)
[2017-07-10] MEDS: RIVAROXABAN 20 MG TABLET PO SCH (17:00)
[2017-07-10 18:19] LABS: ABG HCO3 37 mmol/L (23-28); ABG PCO2 53 mmHg (41-51); ABG PH 7.45 (7.31-7.41); ABG PO2 66 mmHg (80-105)
[2017-07-10] MEDS: SIMVASTATIN 20 MG TAB PO SCH (22:00)
[2017-07-11] VITALS (53 sets, daily range): BP systolic 94–124; BP diastolic 55–79
[2017-07-11] MEDS: VANCOMYCIN 1GM/NS 250 ML 250 ML IV SCH ×3 (01:00→22:19)
[2017-07-11] MEDS: PROPAFENONE HCL 150 MG TAB PO SCH ×4 (01:45→22:00)
[2017-07-11] MEDS: PIPER-TAZ 3.375 GM 50 ML IV SCH ×3 (04:36→20:00)
[2017-07-11 05:32] LABS: BASOPHILS # (AUTO) 0.1 (0.0-0.1); BASOPHILS % 0.5 % (0.0-1.0); EOSINOPHILS # (AUTO) 0.5 (0.0-0.4); EOSINOPHILS % 4.3 % (0.0-6.0); HEMATOCRIT 41.7 % (38.2-49.6); HEMOGLOBIN 11.4 g/dL (14.0-18.0); LYMPHOCYTES # (AUTO) 1.2 (1.0-3.2); LYMPHOCYTES % 11.1 % (18.0-39.1); MEAN CORPUSCULAR HEMOGLOBIN 20.7 pg (28-32); MEAN CORPUSCULAR HGB CONC 27.3 g/dL (31-35); MEAN CORPUSCULAR VOLUME 75.8 fL (81-99); MONOCYTES # (AUTO) 1.1 (0.2-0.8); NEUTROPHILS # (AUTO) 7.6 (2.1-6.9); NEUTROPHILS % 72.8 % (38.7-80.0); PLATELET COUNT 236 x10e3/uL (140-360); RED CELL DISTRIBUTION WIDTH 19.9 % (11.7-14.4)
[2017-07-11] MEDS: FUROSEMIDE INJ 10 MG/ML 4 ML VIAL IV SCH ×3 (06:00→22:40)
[2017-07-11 06:05] LABS: ANION GAP 12.4 mmol/L (8-16); BLOOD UREA NITROGEN 23 mg/dL (7-26); BUN/CREATININE RATIO 21 (6-25); CALCIUM 9.2 mg/dL (8.4-10.2); CARBON DIOXIDE 35 mmol/L (22-29); CHLORIDE 95 mmol/L (98-107); CREATININE, SERUM 1.11 mg/dL (0.72-1.25); EST GLOMERULAR FILTRATION RATE > 60 ML/MIN (60-); GLUCOSE 162 mg/dL (74-118); MAGNESIUM 1.8 MG/DL (1.3-2.1); POTASSIUM 3.4 mmol/L (3.5-5.1); SODIUM 139 mmol/L (136-145)
[2017-07-11] MEDS: INSULIN REGULAR, HUMAN 100 UNIT/1 ML 3ML VIAL SQ SCH ×4 (06:35→18:00)
--- NOTE | 2017-07-11 06:36 | Diagnostic Imaging Report ---
EXAM: CHEST SINGLE (PORTABLE), AP 1 view DATE: 07/11/2017 5:15 AM Time stamp on exam: 0529 hours INDICATION: CHF COMPARISON: AP view of the chest July 08, 2017 FINDINGS: LINES/TUBES: Stable endotracheal tube and poorly visualized nasal/orogastric tube. The right approach PICC is now pointing cranially and coiled within the internal jugular vein. LUNGS: Stable bilateral perihilar atelectasis and likely pulmonary edema PLEURA: No effusions or pneumothorax. HEART AND MEDIASTINUM: Stable appearance BONES AND SOFT TISSUES: No acute findings. IMPRESSION: The tip of a right approach PICC is now coursing cranially and coiled within the right internal jugular vein. Signed by: Dr. Debbie Becerra M.D. on 07/11/2017 6:32 AM
[2017-07-11] MEDS: DEXMEDETOMIDINE HCL 200 MCG in SODIUM CHLORIDE 0.9% 50ML 48 ML IV PRN (08:57)
[2017-07-11] MEDS: OSELTAMIVIR PHOSPHATE 75 MG CAP PO SCH ×2 (09:49→17:56)
[2017-07-11] MEDS: FAMOTIDINE 20 MG/2 ML VIAL IV SCH ×2 (09:49→17:43)
[2017-07-11] MEDS: ASPIRIN 81 MG CHEW TAB PO SCH (09:49)
[2017-07-11] MEDS ORDERED: POTASSIUM CHLORIDE 20 MEQ TAB CR PO PRN (10:30)
--- NOTE | 2017-07-11 10:58 | Diagnostic Imaging Report ---
EXAM: CHEST XRAY LINE PLACEMENT DATE: 07/11/2017 10:11 AM INDICATION: PICC line COMPARISON: 07/11/2017 at 0529 FINDINGS: ET tube and NG tube stable. Right PICC present with tip overlying SVC. Image quality degraded by body habitus, low lung volumes, and underpenetration. Prominence of the cardiac silhouette, probable mild edema, and possible trace effusions. IMPRESSION: Right PICC placement. Exam otherwise similar given limitations. Signed by: Dr. Abdoulaye Sterling MD on 07/11/2017 10:54 AM
[2017-07-11] MEDS: AZITHROMYCIN 500MG/NS 250 ML 250 ML IV SCH (12:30)
[2017-07-11] MEDS: RIVAROXABAN 20 MG TABLET PO SCH (17:56)
[2017-07-11] MEDS ORDERED: LACTULOSE SYRUP 20 GM/30 ML UDC PO PRN (18:00)
[2017-07-11] MEDS: SIMVASTATIN 20 MG TAB PO SCH (21:00)
[2017-07-11] MEDS ORDERED: SODIUM CHLORIDE 0.9% 250ML 250 ML ONE (21:59)
[2017-07-11] MEDS: PROPOFOL IV EMULSION 10MG/ML 100 ML IV PRN (22:40)
[2017-07-12] VITALS (76 sets, daily range): BP systolic 91–162; BP diastolic 52–83
[2017-07-12] MEDS: PROPAFENONE HCL 150 MG TAB PO SCH ×3 (05:10→22:00)
[2017-07-12] MEDS: FUROSEMIDE INJ 10 MG/ML 4 ML VIAL IV SCH ×3 (05:25→22:00)
[2017-07-12] MEDS: PIPER-TAZ 3.375 GM 50 ML IV SCH ×3 (05:25→20:02)
[2017-07-12] MEDS: INSULIN REGULAR, HUMAN 100 UNIT/1 ML 3ML VIAL SQ SCH ×4 (05:27→19:15)
[2017-07-12] MEDS: PROPOFOL IV EMULSION 10MG/ML 100 ML IV PRN (06:04)
--- NOTE | 2017-07-12 06:20 | Diagnostic Imaging Report ---
EXAM: CHEST SINGLE (PORTABLE), AP 1 view DATE: 07/12/2017 4:39 AM Time stamp on exam: 0515 hours INDICATION: Intubation COMPARISON: AP view of the chest July 11, 2017 FINDINGS: LINES/TUBES: Stable position endotracheal tube, right approach PICC and partially visualized nasal/orogastric tube. LUNGS: Stable bilateral interstitial and alveolar opacities. PLEURA: Indeterminate for small bilateral layering pleural effusions. HEART AND MEDIASTINUM: Stable appearance BONES AND SOFT TISSUES: No acute findings. IMPRESSION: No interval change Signed by: Dr. Debbie Becerra M.D. on 07/12/2017 6:17 AM
[2017-07-12 06:32] LABS: BASOPHILS # (AUTO) 0.1 (0.0-0.1); BASOPHILS % 0.9 % (0.0-1.0); EOSINOPHILS # (AUTO) 0.5 (0.0-0.4); EOSINOPHILS % 5.7 % (0.0-6.0); HEMATOCRIT 42.3 % (38.2-49.6); HEMOGLOBIN 11.4 g/dL (14.0-18.0); LYMPHOCYTES % 10.9 % (18.0-39.1); MEAN CORPUSCULAR HEMOGLOBIN 20.8 pg (28-32); MEAN CORPUSCULAR VOLUME 77.3 fL (81-99); MONOCYTES % 10.4 % (4.4-11.3); NEUTROPHILS # (AUTO) 6.6 (2.1-6.9); NEUTROPHILS % 71.7 % (38.7-80.0); PLATELET COUNT 218 x10e3/uL (140-360); RED BLOOD COUNT 5.47 x10e6/uL (4.3-5.7); RED CELL DISTRIBUTION WIDTH 19.9 % (11.7-14.4)
[2017-07-12 06:45] LABS: ANION GAP 15.5 mmol/L (8-16); BLOOD UREA NITROGEN 23 mg/dL (7-26); BUN/CREATININE RATIO 27 (6-25); CALCIUM 9.4 mg/dL (8.4-10.2); CARBON DIOXIDE 35 mmol/L (22-29); CHLORIDE 98 mmol/L (98-107); CREATININE, SERUM 0.84 mg/dL (0.72-1.25); EST GLOMERULAR FILTRATION RATE > 60 ML/MIN (60-); GLUCOSE 173 mg/dL (74-118); MAGNESIUM 2.2 MG/DL (1.3-2.1); POTASSIUM 3.5 mmol/L (3.5-5.1); SODIUM 145 mmol/L (136-145)
[2017-07-12 08:00] LABS: ANISOCYTOSIS SLIGHT; HYPOCHROMASIA SLIGHT; PLATELET ESTIMATE ADEQUATE; PLATELET MORPHOLOGY COMMENT FEW LARGE; RBC MORPHOLOGY COMMENT NORMAL
[2017-07-12 08:49] LABS: ABG HCO3 40 mmol/L (23-28); ABG PCO2 56 mmHg (41-51); ABG PH 7.46 (7.31-7.41); ABG PO2 57 mmHg (80-105)
[2017-07-12] MEDS: FAMOTIDINE 20 MG/2 ML VIAL IV SCH ×2 (09:00→19:15)
[2017-07-12] MEDS: ASPIRIN 81 MG CHEW TAB PO SCH (09:00)
[2017-07-12] MEDS: IRON SUCROSE 100 MG in SODIUM CHLORIDE 0.9% 100 ML 100 ML IV SCH (09:30)
[2017-07-12] MEDS: OSELTAMIVIR PHOSPHATE 75 MG CAP PO SCH ×2 (09:59→19:15)
[2017-07-12] MEDS: VANCOMYCIN 1GM/NS 250 ML 250 ML IV SCH ×2 (13:10→23:04)
[2017-07-12] MEDS: AZITHROMYCIN 500MG/NS 250 ML 250 ML IV SCH (14:30)
[2017-07-12] MEDS ORDERED: METHYLPREDNISOLONE SOD SUCC 125 MG/2ML VIAL IV NR (16:00)
[2017-07-12] MEDS ORDERED: POTASSIUM CHLORIDE 10MEQ/100ML 100 ML ONE (16:00)
[2017-07-12] MEDS ORDERED: POTASSIUM CHLORIDE 20MEQ/100ML 100 ML IV ONE (16:00)
[2017-07-12] MEDS ORDERED: SODIUM CHLORIDE 0.9% IV PRN (19:00)
[2017-07-12] MEDS ORDERED: DEXMEDETOMIDINE HCL 1,000 MCG in SODIUM CHLORIDE 0.9% 250ML 240 ML IV PRN (19:00)
[2017-07-12] MEDS ORDERED: DEXMEDETOMIDINE HCL IV PRN (19:00)
[2017-07-12] MEDS: RIVAROXABAN 20 MG TABLET PO SCH (19:15)
[2017-07-12] MEDS: SIMVASTATIN 20 MG TAB PO SCH (21:00)
[2017-07-12] MEDS: METHYLPREDNISOLONE SOD SUCC 125 MG/2ML VIAL IV SCH (22:00)
[2017-07-13] VITALS (90 sets, daily range): BP systolic 109–175; BP diastolic 60–121
[2017-07-13] MEDS: INSULIN REGULAR, HUMAN 100 UNIT/1 ML 3ML VIAL SQ SCH ×4 (00:08→18:00)
[2017-07-13] MEDS: PROPOFOL IV EMULSION 10MG/ML 100 ML IV PRN (02:07)
[2017-07-13] MEDS: PIPER-TAZ 3.375 GM 50 ML IV SCH ×3 (04:12→20:29)
[2017-07-13 06:01] LABS: BASOPHILS % 0.4 % (0.0-1.0); EOSINOPHILS % 0.1 % (0.0-6.0); HEMATOCRIT 42.8 % (38.2-49.6); HEMOGLOBIN 11.7 g/dL (14.0-18.0); LYMPHOCYTES # (AUTO) 0.7 (1.0-3.2); LYMPHOCYTES % 7.1 % (18.0-39.1); MEAN CORPUSCULAR HEMOGLOBIN 20.9 pg (28-32); MEAN CORPUSCULAR HGB CONC 27.3 g/dL (31-35); MEAN CORPUSCULAR VOLUME 76.3 fL (81-99); MONOCYTES # (AUTO) 0.2 (0.2-0.8); MONOCYTES % 1.8 % (4.4-11.3); NEUTROPHILS # (AUTO) 8.5 (2.1-6.9); NEUTROPHILS % 89.2 % (38.7-80.0); PLATELET COUNT 259 x10e3/uL (140-360); RED BLOOD COUNT 5.61 x10e6/uL (4.3-5.7); RED CELL DISTRIBUTION WIDTH 19.7 % (11.7-14.4)
[2017-07-13] MEDS: FUROSEMIDE INJ 10 MG/ML 4 ML VIAL IV SCH ×3 (06:12→22:01)
[2017-07-13] MEDS: PROPAFENONE HCL 150 MG TAB PO SCH ×3 (06:12→22:02)
[2017-07-13] MEDS: METHYLPREDNISOLONE SOD SUCC 125 MG/2ML VIAL IV SCH ×3 (06:12→22:01)
[2017-07-13 06:25] LABS: BLOOD UREA NITROGEN 22 mg/dL (7-26); BUN/CREATININE RATIO 24 (6-25); CALCIUM 9.3 mg/dL (8.4-10.2); CARBON DIOXIDE 34 mmol/L (22-29); CHLORIDE 99 mmol/L (98-107); EST GLOMERULAR FILTRATION RATE > 60 ML/MIN (60-); GLUCOSE 244 mg/dL (74-118); SODIUM 144 mmol/L (136-145)
[2017-07-13 06:50] LABS: THYROID STIMULATING HORMONE 0.464 uIU/mL (0.350-4.940)
--- NOTE | 2017-07-13 07:11 | Diagnostic Imaging Report ---
EXAMINATION: CHEST SINGLE (PORTABLE) INDICATION: Intubated COMPARISON: 07/12/2017 FINDINGS: TUBES and LINES: Endotracheal and NG tube are stable. The right upper extremity PICC line remains partially coiled at the base of the neck with tip overlying the right innominate vein. LUNGS: Lungs are not well inflated. There are bibasilar atelectasis. Worsening interstitial edema PLEURA: Trace of right pleural effusion HEART AND MEDIASTINUM: Cardiac size is moderately enlarged. BONES AND SOFT TISSUES: No acute osseous lesion. Soft tissues are unremarkable. UPPER ABDOMEN: No free air under the diaphragm. IMPRESSION: Mild worsening of pulmonary edema Signed by: Dr. Samir Carranza M.D. on 07/13/2017 7:07 AM
[2017-07-13] MEDS: ASPIRIN 81 MG CHEW TAB PO SCH (09:00)
[2017-07-13] MEDS: FAMOTIDINE 20 MG/2 ML VIAL IV SCH ×2 (09:00→16:33)
[2017-07-13] MEDS: OSELTAMIVIR PHOSPHATE 75 MG CAP PO SCH ×2 (09:00→16:33)
[2017-07-13] MEDS: IRON SUCROSE 100 MG in SODIUM CHLORIDE 0.9% 100 ML 100 ML IV SCH (09:30)
[2017-07-13 10:41] LABS: ABG HCO3 40 mmol/L (23-28); ABG PCO2 51 mmHg (41-51); ABG PO2 53 mmHg (80-105)
[2017-07-13] MEDS: VANCOMYCIN 1GM/NS 250 ML 250 ML IV SCH ×2 (12:00→23:50)
[2017-07-13] MEDS: AZITHROMYCIN 500MG/NS 250 ML 250 ML IV SCH (12:40)
[2017-07-13] MEDS: RIVAROXABAN 20 MG TABLET PO SCH (17:00)
[2017-07-13] MEDS ORDERED: SODIUM CHLORIDE 0.9% 250ML 250 ML ONE (20:02)
[2017-07-13] MEDS: SIMVASTATIN 20 MG TAB PO SCH (21:50)
[2017-07-14] VITALS (63 sets, daily range): BP systolic 126–220; BP diastolic 68–188
[2017-07-14] MEDS: INSULIN REGULAR, HUMAN 100 UNIT/1 ML 3ML VIAL SQ SCH ×4 (00:09→21:34)
[2017-07-14] MEDS: PIPER-TAZ 3.375 GM 50 ML IV SCH ×3 (04:03→20:00)
[2017-07-14] MEDS: METHYLPREDNISOLONE SOD SUCC 125 MG/2ML VIAL IV SCH ×3 (06:13→21:51)
[2017-07-14] MEDS: PROPAFENONE HCL 150 MG TAB PO SCH ×3 (06:13→21:52)
[2017-07-14] MEDS: FUROSEMIDE INJ 10 MG/ML 4 ML VIAL IV SCH (06:13)
[2017-07-14 06:23] LABS: BASOPHILS % 0.1 % (0.0-1.0); HEMATOCRIT 42.8 % (38.2-49.6); HEMOGLOBIN 11.9 g/dL (14.0-18.0); LYMPHOCYTES % 6.8 % (18.0-39.1); MEAN CORPUSCULAR HGB CONC 27.8 g/dL (31-35); MEAN CORPUSCULAR VOLUME 75.5 fL (81-99); MONOCYTES # (AUTO) 0.8 (0.2-0.8); MONOCYTES % 5.4 % (4.4-11.3); NEUTROPHILS # (AUTO) 12.2 (2.1-6.9); NEUTROPHILS % 87.2 % (38.7-80.0); PLATELET COUNT 345 x10e3/uL (140-360); RED BLOOD COUNT 5.67 x10e6/uL (4.3-5.7); RED CELL DISTRIBUTION WIDTH 19.7 % (11.7-14.4)
[2017-07-14 06:45] LABS: ANION GAP 13.5 mmol/L (8-16); BLOOD UREA NITROGEN 26 mg/dL (7-26); BUN/CREATININE RATIO 27 (6-25); CALCIUM 9.6 mg/dL (8.4-10.2); CARBON DIOXIDE 34 mmol/L (22-29); CHLORIDE 98 mmol/L (98-107); CREATININE, SERUM 0.95 mg/dL (0.72-1.25); EST GLOMERULAR FILTRATION RATE > 60 ML/MIN (60-); GLUCOSE 301 mg/dL (74-118); MAGNESIUM 1.9 MG/DL (1.3-2.1); POTASSIUM 3.5 mmol/L (3.5-5.1); SODIUM 142 mmol/L (136-145)
[2017-07-14] MEDS: ASPIRIN 81 MG CHEW TAB PO SCH (09:00)
[2017-07-14] MEDS ORDERED: FUROSEMIDE 20 MG TAB PO SCH (09:00)
[2017-07-14] MEDS ORDERED: LOSARTAN POTASSIUM 100 MG TAB PO SCH (09:00)
[2017-07-14] MEDS ORDERED: POTASSIUM CHLORIDE 20 MEQ TAB CR PO NR (09:00)
[2017-07-14] MEDS: FAMOTIDINE 20 MG/2 ML VIAL IV SCH ×2 (09:00→16:40)
[2017-07-14] MEDS: LOSARTAN POTASSIUM 25 MG TAB PO SCH (09:30)
[2017-07-14] MEDS: IRON SUCROSE 100 MG in SODIUM CHLORIDE 0.9% 100 ML 100 ML IV SCH (09:30)
[2017-07-14] MEDS: VANCOMYCIN 1GM/NS 250 ML 250 ML IV SCH ×2 (11:00→23:00)
[2017-07-14] MEDS: AZITHROMYCIN 500MG/NS 250 ML 250 ML IV SCH (11:30)
[2017-07-14] MEDS ORDERED: SODIUM CHLORIDE 0.9% 250ML 250 ML ONE (14:21)
[2017-07-14] MEDS: RIVAROXABAN 20 MG TABLET PO SCH (17:00)
[2017-07-14] MEDS: SIMVASTATIN 20 MG TAB PO SCH (21:33)
[2017-07-15] VITALS (8 sets, daily range): BP systolic 130–164; BP diastolic 64–85
[2017-07-15] MEDS: PIPER-TAZ 3.375 GM 50 ML IV SCH ×3 (04:10→20:30)
[2017-07-15] MEDS: METHYLPREDNISOLONE SOD SUCC 125 MG/2ML VIAL IV SCH (06:08)
[2017-07-15] MEDS: PROPAFENONE HCL 150 MG TAB PO SCH ×3 (06:09→21:58)
[2017-07-15 06:39] LABS: BASOPHILS % 0.1 % (0.0-1.0); HEMATOCRIT 44.2 % (38.2-49.6); HEMOGLOBIN 11.8 g/dL (14.0-18.0); LYMPHOCYTES # (AUTO) 1.2 (1.0-3.2); LYMPHOCYTES % 8.7 % (18.0-39.1); MEAN CORPUSCULAR HGB CONC 26.7 g/dL (31-35); MEAN CORPUSCULAR VOLUME 78.6 fL (81-99); MONOCYTES # (AUTO) 0.6 (0.2-0.8); MONOCYTES % 4.2 % (4.4-11.3); NEUTROPHILS # (AUTO) 12.1 (2.1-6.9); NEUTROPHILS % 86.4 % (38.7-80.0); PLATELET COUNT 383 x10e3/uL (140-360); RED BLOOD COUNT 5.62 x10e6/uL (4.3-5.7); RED CELL DISTRIBUTION WIDTH 19.4 % (11.7-14.4)
[2017-07-15 06:58] LABS: ANION GAP 13.3 mmol/L (8-16); BLOOD UREA NITROGEN 23 mg/dL (7-26); BUN/CREATININE RATIO 29 (6-25); CALCIUM 9.2 mg/dL (8.4-10.2); CARBON DIOXIDE 36 mmol/L (22-29); CHLORIDE 100 mmol/L (98-107); EST GLOMERULAR FILTRATION RATE > 60 ML/MIN (60-); GLUCOSE 251 mg/dL (74-118); MAGNESIUM 2.2 MG/DL (1.3-2.1); POTASSIUM 4.3 mmol/L (3.5-5.1); SODIUM 145 mmol/L (136-145)
[2017-07-15 07:32] LABS: ANISOCYTOSIS SLIGHT; HYPOCHROMASIA MODERATE; LYMPHOCYTES % (MANUAL) 5 % (19-48); MONOCYTES % (MANUAL) 6 % (3.4-9.0); MYELOCYTES % (MANUAL) 1 % (0-0); NEUTROPHILS % (MANUAL) 88 % (40-74); RBC MORPHOLOGY COMMENT NORMAL
[2017-07-15 07:33] LABS: PLATELET ESTIMATE ADEQUATE; PLATELET MORPHOLOGY COMMENT NORMAL; POIKILOCYTOSIS SLIGHT
[2017-07-15] MEDS: INSULIN REGULAR, HUMAN 100 UNIT/1 ML 3ML VIAL SQ SCH ×4 (08:00→21:24)
[2017-07-15] MEDS: FAMOTIDINE 20 MG/2 ML VIAL IV SCH (08:51)
[2017-07-15] MEDS: ASPIRIN 81 MG CHEW TAB PO SCH (08:51)
[2017-07-15] MEDS: LOSARTAN POTASSIUM 25 MG TAB PO SCH (08:52)
[2017-07-15] MEDS: FUROSEMIDE 40 MG TAB PO SCH (12:32)
[2017-07-15] MEDS ORDERED: METHYLPREDNISOLONE SOD SUCC 125 MG/2ML VIAL IV SCH (14:00)
[2017-07-15] MEDS: METHYLPREDNISOLONE SOD SUCC 40 MG/ML VIAL IV SCH ×2 (14:51→21:57)
[2017-07-15] MEDS: RIVAROXABAN 20 MG TABLET PO SCH ×2 (16:52→17:11)
[2017-07-15] MEDS: FAMOTIDINE 20 MG TAB PO SCH (16:52)
[2017-07-15] MEDS: SIMVASTATIN 20 MG TAB PO SCH (20:30)
[2017-07-16] VITALS: BP 151/73
[2017-07-16 04:00] VITALS: BP 144/75
[2017-07-16] MEDS: PIPER-TAZ 3.375 GM 50 ML IV SCH ×2 (04:25→13:29)
[2017-07-16] MEDS: PROPAFENONE HCL 150 MG TAB PO SCH ×2 (06:05→16:40)
[2017-07-16] MEDS: METHYLPREDNISOLONE SOD SUCC 40 MG/ML VIAL IV SCH (06:05)
[2017-07-16 06:48] LABS: BASOPHILS % 0.2 % (0.0-1.0); HEMOGLOBIN 12.7 g/dL (14.0-18.0); LYMPHOCYTES # (AUTO) 1.6 (1.0-3.2); LYMPHOCYTES % 13.1 % (18.0-39.1); MEAN CORPUSCULAR HEMOGLOBIN 20.8 pg (28-32); MONOCYTES # (AUTO) 0.9 (0.2-0.8); MONOCYTES % 7.3 % (4.4-11.3); NEUTROPHILS # (AUTO) 9.8 (2.1-6.9); NEUTROPHILS % 78.8 % (38.7-80.0); PLATELET COUNT 421 x10e3/uL (140-360); RED CELL DISTRIBUTION WIDTH 19.5 % (11.7-14.4)
[2017-07-16 07:08] LABS: ANION GAP 13.3 mmol/L (8-16); BLOOD UREA NITROGEN 22 mg/dL (7-26); BUN/CREATININE RATIO 25 (6-25); CALCIUM 9.2 mg/dL (8.4-10.2); CARBON DIOXIDE 34 mmol/L (22-29); CHLORIDE 99 mmol/L (98-107); CREATININE, SERUM 0.88 mg/dL (0.72-1.25); EST GLOMERULAR FILTRATION RATE > 60 ML/MIN (60-); GLUCOSE 227 mg/dL (74-118); POTASSIUM 4.3 mmol/L (3.5-5.1); SODIUM 142 mmol/L (136-145)
[2017-07-16 08:00] VITALS: BP 138/78
[2017-07-16 08:04] LABS: ANISOCYTOSIS SLIGHT; HYPOCHROMASIA SLIGHT; PLATELET ESTIMATE ADEQUATE; PLATELET MORPHOLOGY COMMENT FEW GIANT; RBC MORPHOLOGY COMMENT NORMAL
[2017-07-16] MEDS: FAMOTIDINE 20 MG TAB PO SCH ×2 (08:56→16:40)
[2017-07-16] MEDS: ASPIRIN 81 MG CHEW TAB PO SCH (08:56)
[2017-07-16] MEDS: LOSARTAN POTASSIUM 25 MG TAB PO SCH (08:57)
[2017-07-16] MEDS: FUROSEMIDE 40 MG TAB PO SCH (08:57)
[2017-07-16] MEDS ORDERED: PREDNISONE 10 MG TAB PO SCH (09:00)
[2017-07-16] MEDS: PREDNISONE 20 MG TAB PO SCH ×2 (09:00→16:39)
[2017-07-16] MEDS ORDERED: PREDNISONE10 MG PO (09:06)
[2017-07-16] MEDS ORDERED: POTASSIUM CHLO20 ME1 PO (09:06)
[2017-07-16] MEDS ORDERED: PROPAFENONE HC150 MG PO (09:06)
[2017-07-16] MEDS ORDERED: FUROSEMIDE40 MG PO (09:06)
[2017-07-16] MEDS ORDERED: XARELTO10 MG PO (09:06)
[2017-07-16] MEDS ORDERED: FUROSEMIDE INJ 10 MG/ML 4 ML VIAL IV NR (09:30)
[2017-07-16] MEDS: INSULIN REGULAR, HUMAN 100 UNIT/1 ML 3ML VIAL SQ SCH ×3 (11:16→16:46)
[2017-07-16 12:00] VITALS: BP 139/74
[2017-07-16 16:00] VITALS: BP 155/86
--- NOTE | 2017-07-19 13:00 | Discharge Summary ---
ADMISSION DIAGNOSES 1. Atrial fibrillation, rapid ventricular response. 2. Acute respiratory failure secondary to pneumonia. 3. Type-2 diabetes. 4. Hypotension/hypertension. DISCHARGE DIAGNOSES 1. Atrial fibrillation, rapid ventricular response. 2. Acute respiratory failure secondary to pneumonia. 3. Type-2 diabetes. 4. Hypotension/hypertension. HISTORY: Patient has a history of type-2 diabetes, hypertension, hyperlipidemia, with an unknown surgical history. HOSPITAL COURSE: A 51-year-old male presented with chest palpitations, and shortness of breath. He was found to be in AFib with RVR and was started on a Cardizem drip in the ER. Patient had worsening mental status and worsening shortness of breath. ABG showed a pCO2 of 84, with a pH of 7.21. He was intubated and admitted for further evaluation. Chest x-ray suggests pneumonia and pulmonary edema. An echo was done, which showed left ventricular hypertrophy with an EF of about 45%. Per cardiology, patient was started on Rythmol and anticoagulation. On the , the patient had a cardioversion. Post EKG showed sinus rhythm without any ST or T changes, but continued on the Xarelto, Cardizem drip, and Rythmol. CT of the chest on the showed no CT evidence of PE, [id number] right and small left pleural effusions with moderate compressive atelectasis of the lower lobes and mild compressive atelectasis of the right upper lobe, moderate cardiomegaly. Patient was weaned off of the Cardizem drip. Blood cultures were all negative. Urine cultures negative and sputum culture negative. Patient was started on IV antibiotics in the ER, which continued through hospitalization. He was also placed on steroids and nebs and Mucinex. At the time of discharge, WBC was 12.40, hemoglobin of 12.7, hematocrit of 47. Sodium of 142, potassium of 4.3. Flu screen was negative. Vital signs were stable. Patient was afebrile. Upon discharge, patient qualified for home O2, which will be set up prior to discharge. He will follow up with his primary care in about a week, who will then release him to work as he deems necessary because the patient works in a plant dealing with metals and acids, and he would not be able to work with an oxygen tank. Patient was sent home on tapered steroids, Lasix, potassium, Rythmol, and Xarelto. Dictated by Andria Dumont, [employer] NICOLAS HERNANDEZ MD Job#: [id number] CQ
== END 2017-07-16 17:45 | disposition home or self-care (01) | DRG 870 ==
LOC: ER 12:20 → ERHOLD 15:57 → ICU 07-06 06:48 → OBSVTOIN 07-06 10:44 → ICU 07-07 03:53 → MED/SURG 07-14 16:56
PROVIDERS: ADMIT Internal Medicine; ATTEND Internal Medicine
PROC: 5A1955Z Respiratory Ventilation, Greater than 96 Consecutive Hours (ICD-10-PCS; principal; 2017-07-06)
PROC: 0BH17EZ Insertion of Endotracheal Airway into Trachea, Via Natural or Artificial Opening (ICD-10-PCS; 2017-07-08)
PROC: 02HV33Z Insertion of Infusion Device into Superior Vena Cava, Percutaneous Approach (ICD-10-PCS; 2017-07-08)
PROC: 5A2204Z Restoration of Cardiac Rhythm, Single (ICD-10-PCS; 2017-07-10)
DX: A41.9 Sepsis, unspecified organism (principal); J96.00 Acute respiratory failure, unspecified whether with hypoxia or hypercapnia; J18.9 Pneumonia, unspecified organism; I50.33 Acute on chronic diastolic (congestive) heart failure; D68.59 Other primary thrombophilia; J44.0 Chronic obstructive pulmonary disease with (acute) lower respiratory infection; E66.01 Morbid (severe) obesity due to excess calories; I11.0 Hypertensive heart disease with heart failure; J96.22 Acute and chronic respiratory failure with hypercapnia; J44.1 Chronic obstructive pulmonary disease with (acute) exacerbation; E11.9 Type 2 diabetes mellitus without complications; D64.9 Anemia, unspecified; Z79.01 Long term (current) use of anticoagulants; Z68.38 Body mass index [BMI] 38.0-38.9, adult; G47.33 Obstructive sleep apnea (adult) (pediatric); R65.20 Severe sepsis without septic shock; I48.0 Paroxysmal atrial fibrillation; D50.9 Iron deficiency anemia, unspecified; Z79.4 Long term (current) use of insulin
CPT/HCPCS: 31500; 36415; 36569; 36600; 71010; 71260; 80048; 80053; 80061; 80162; 80202; 81001; 82040; 82550; 82553; 82805; 82948; 83036; 83540; 83605; 83690; 83735; 83880; 84436; 84443; 84466; 84479; 84484; 85025; 85610; 85730; 87040; 87070; 87086; 87205; 87400; 93005; 93306; 94002; 94003; 94660; 96361; 96365; 96366; 96367; 96372; 96375; 96376; 97139; 99285; G0378; J0330; J0456; J1160; J1650; J1756; J1940; J1956; J2250; J2543; J2920; J2930; J2997; J3370; J3480; J7030; J7050; Q9967

== ENCOUNTER 2017-07-21 16:21 | Inpatient (IN) | payer BC ==
[~2017-07-21] VITALS: Ht 200.7 cm; Wt 110.2 kg
[~2017-07-21 16:21] MED LIST: ASPIR 8181 MG PO; CRESTOR10 MG PO; FUROSEMIDE40 MG PO; GLIMEPIRIDE2 MG PO; JANUVIA100 MG PO; LISINOPRIL10 MG PO; METFORMIN HCL500 MG PO; POTASSIUM CHLO20 ME1 PO; PREDNISONE10 MG PO; PROPAFENONE HC150 MG PO; XARELTO10 MG PO
[2017-07-21] MEDS ORDERED: SODIUM CHLORIDE 0.9% 500ML 500 ML IV STA (16:53)
[2017-07-21] MEDS ORDERED: METOPROLOL TARTRATE INJ 1 MG/ML VIAL ONE (16:57)
[2017-07-21] MEDS ORDERED: ASPIRIN 81 MG CHEW TAB PO ONE ×2 (17:00→18:30)
[2017-07-21] MEDS ORDERED: METOPROLOL TARTRATE INJ 1 MG/ML VIAL IV ONE (17:00)
[2017-07-21] MEDS ORDERED: ASPIRIN 81 MG CHEW TAB ONE (17:04)
[2017-07-21 17:50] LABS: BASOPHILS % 0.1 % (0.0-1.0); HEMATOCRIT 52.9 % (38.2-49.6); HEMOGLOBIN 15.2 g/dL (14.0-18.0); LYMPHOCYTES # (AUTO) 1.9 (1.0-3.2); LYMPHOCYTES % 11.9 % (18.0-39.1); MEAN CORPUSCULAR HEMOGLOBIN 21.4 pg (28-32); MEAN CORPUSCULAR HGB CONC 28.7 g/dL (31-35); MEAN CORPUSCULAR VOLUME 74.4 fL (81-99); MONOCYTES # (AUTO) 0.7 (0.2-0.8); MONOCYTES % 4.4 % (4.4-11.3); NEUTROPHILS # (AUTO) 13.3 (2.1-6.9); PLATELET COUNT 541 x10e3/uL (140-360)
[2017-07-21 17:51] LABS: RED BLOOD COUNT 7.11 x10e6/uL (4.3-5.7)
[2017-07-21 18:07] LABS: ALANINE AMINOTRANSFERASE 62 IU/L (0-55); ALBUMIN 3.3 g/dL (3.5-5.0); ALBUMIN/GLOBULIN RATIO 0.9 (0.8-2.0); ALKALINE PHOSPHATASE 59 IU/L (40-150); ANION GAP 16.7 mmol/L (8-16); BLOOD UREA NITROGEN 19 mg/dL (7-26); BUN/CREATININE RATIO 21 (6-25); CALCIUM 9.4 mg/dL (8.4-10.2); CARBON DIOXIDE 29 mmol/L (22-29); CHLORIDE 94 mmol/L (98-107); CREATINE KINASE 71 IU/L (30-200); CREATININE, SERUM 0.89 mg/dL (0.72-1.25); EST GLOMERULAR FILTRATION RATE > 60 ML/MIN (60-); GLUCOSE 343 mg/dL (74-118); LIPASE 10 U/L (8-78); POTASSIUM 4.7 mmol/L (3.5-5.1); SODIUM 135 mmol/L (136-145)
[2017-07-21 18:10] LABS: INR 1.16; PROTHROMBIN TIME 15.4 seconds (11.9-14.5)
[2017-07-21 18:18] LABS: TROPONIN I 0.034 ng/mL (0-0.300)
--- NOTE | 2017-07-21 18:29 | Diagnostic Imaging Report ---
PROCEDURE: A single AP view of the chest. COMPARISON: Patients [facility], , CHEST SINGLE (PORTABLE), 07/13/2017, 5:26. INDICATIONS: CHEST PAIN FINDINGS: Lines/tubes: None. Lungs: The lungs are well inflated and clear. There is no evidence of pneumonia or pulmonary edema. Pleura: There is no pleural effusion or pneumothorax. Heart and mediastinum: The heart and the mediastinum are unremarkable. Bones: No acute bony abnormality. IMPRESSION: 1. No acute cardiopulmonary abnormalities. Ernesto Jeffers M.D. Dictated by: Ernesto Jeffers M.D. on 07/21/2017 at 18:38 Electronically approved by: Ernesto Jeffers M.D. on 07/21/2017 at 18:38
[2017-07-21] MEDS ORDERED: SODIUM CHLORIDE FLUSH 10 ML SYR INJ PRN (18:30)
[2017-07-21] MEDS ORDERED: ONDANSETRON HCL INJ 2 MG/ML VIAL IV PRN (18:30)
[2017-07-21] MEDS ORDERED: MORPHINE SULFATE 4 MG/ML SYR IV PRN (18:45)
[2017-07-21] MEDS ORDERED: METOPROLOL SUCCINATE 50 MG TAB XL PO ONE (19:00)
[2017-07-21] MEDS ORDERED: DEXTROSE 50% SYRINGE 50 ML IV PRN (19:15)
[2017-07-21] MEDS ORDERED: AMIODARONE HCL 150MG 100 ML IV SCH (19:15)
[2017-07-21] MEDS ORDERED: AMIODARONE HCL 360MG 200 ML IV SCH (19:15)
[2017-07-21] MEDS ORDERED: AMIODARONE HCL 150 MG in DEXTROSE 5% 100ML 100 ML IV ONE (19:46)
[2017-07-21] MEDS: AMIODARONE HCL 900 MG in DEXTROSE 5 % 500ML BOTTLE 500 ML IV SCH (20:12)
[2017-07-21] MEDS: INSULIN REGULAR, HUMAN 100 UNIT/1 ML 3ML VIAL SQ SCH (21:13)
[2017-07-22] MEDS ORDERED: AMIODARONE HCL 360MG 200 ML IV SCH
[2017-07-22 01:10] LABS: CREATINE KINASE MB 0.8 ng/mL (0.00-5.00); TROPONIN I 0.028 ng/mL (0-0.300)
[2017-07-22 04:43] LABS: BASOPHILS % 0.2 % (0.0-1.0); EOSINOPHILS # (AUTO) 0.1 (0.0-0.4); HEMOGLOBIN 14.6 g/dL (14.0-18.0); LYMPHOCYTES # (AUTO) 3.4 (1.0-3.2); LYMPHOCYTES % 25.1 % (18.0-39.1); MEAN CORPUSCULAR HEMOGLOBIN 21.9 pg (28-32); MEAN CORPUSCULAR HGB CONC 28.6 g/dL (31-35); MEAN CORPUSCULAR VOLUME 76.6 fL (81-99); MONOCYTES # (AUTO) 1.1 (0.2-0.8); MONOCYTES % 8.3 % (4.4-11.3); NEUTROPHILS # (AUTO) 8.8 (2.1-6.9); NEUTROPHILS % 64.8 % (38.7-80.0); PLATELET COUNT 443 x10e3/uL (140-360); RED BLOOD COUNT 6.66 x10e6/uL (4.3-5.7); RED CELL DISTRIBUTION WIDTH 22.1 % (11.7-14.4)
[2017-07-22 04:58] LABS: ANISOCYTOSIS SLIGHT; HYPOCHROMASIA SLIGHT; RBC MORPHOLOGY COMMENT NORMAL
[2017-07-22 04:59] LABS: PLATELET ESTIMATE MODERATELY INCREASED; PLATELET MORPHOLOGY COMMENT FEW LARGE
[2017-07-22 05:04] LABS: ALANINE AMINOTRANSFERASE 52 IU/L (0-55); ALBUMIN 2.7 g/dL (3.5-5.0); ALBUMIN/GLOBULIN RATIO 0.9 (0.8-2.0); ALKALINE PHOSPHATASE 51 IU/L (40-150); ANION GAP 11.1 mmol/L (8-16); BLOOD UREA NITROGEN 19 mg/dL (7-26); BUN/CREATININE RATIO 22 (6-25); CALCIUM 8.7 mg/dL (8.4-10.2); CARBON DIOXIDE 33 mmol/L (22-29); CHLORIDE 99 mmol/L (98-107); CREATININE, SERUM 0.85 mg/dL (0.72-1.25); EST GLOMERULAR FILTRATION RATE > 60 ML/MIN (60-); GLUCOSE 187 mg/dL (74-118); MAGNESIUM 1.8 MG/DL (1.3-2.1); PHOSPHORUS 4.7 MG/DL (2.3-4.7); POTASSIUM 4.1 mmol/L (3.5-5.1); SODIUM 139 mmol/L (136-145)
[2017-07-22] MEDS: INSULIN REGULAR, HUMAN 100 UNIT/1 ML 3ML VIAL SQ SCH ×4 (07:37→21:00)
[2017-07-22] MEDS: ASPIRIN 81 MG ENTERIC COATED PO SCH (07:39)
[2017-07-22] MEDS ORDERED: LISINOPRIL 10 MG TAB PO SCH (09:00)
[2017-07-22 09:49] LABS: CREATINE KINASE MB 0.9 ng/mL (0.00-5.00); TROPONIN I 0.034 ng/mL (0-0.300)
[2017-07-22] MEDS: SITAGLIPTIN 100 MG TAB PO SCH (10:15)
[2017-07-22] MEDS: METFORMIN HCL 500 MG TAB PO SCH ×2 (10:15→18:10)
[2017-07-22] MEDS: POTASSIUM CHLORIDE 20 MEQ TAB CR PO SCH (10:15)
[2017-07-22] MEDS: FUROSEMIDE 40 MG TAB PO SCH (10:15)
[2017-07-22] MEDS: RIVAROXABAN 10 MG TABLET PO SCH (10:15)
[2017-07-22] MEDS ORDERED: SODIUM CHLORIDE 0.9% 100 ML 100 ML IV ONE (15:30)
[2017-07-22] MEDS ORDERED: DIGOXIN INJ 0.25 MG/ML 2 ML AMP IV ONE ×2 (15:30→20:00)
[2017-07-22] MEDS: PANTOPRAZOLE SOD 40 MG TABEC PO SCH (19:13)
[2017-07-22] MEDS: AMIODARONE HCL 900 MG in DEXTROSE 5 % 500ML BOTTLE 500 ML IV SCH (19:16)
[2017-07-22] MEDS: SIMVASTATIN 20 MG TAB PO SCH (19:54)
[2017-07-22 20:00] VITALS: BP 104/64
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
[2017-07-22] MEDS ORDERED: SIMVASTATIN 40 MG TAB PO SCH (21:00)
--- NOTE | 2017-07-22 21:09 | Cardiology Report ---
DATE OF STUDY: July 22, 2017 ECHOCARDIOGRAM M-MODE: Dilated left atrium. Left ventricular hypertrophy. Diminished left ventricular contractility. Ejection fraction is approximately 35%. Mitral, aortic and tricuspid valves are grossly normal. There is no pericardial effusion. SECTOR SCAN: Dilated left atrium. Left ventricular hypertrophy. Normal contractility. Normal mitral, aortic and tricuspid valves. No pericardial effusion. CARDIAC DOPPLER STUDY WITH COLOR: Trace tricuspid regurgitation. CONCLUSIONS: 1. Left ventricular hypertrophy with ejection fraction of approximately 35% compared to the previous study ejection fraction appears to be somewhat diminished. 2. Mildly enlarged left atrium. 3. Trace tricuspid regurgitation. Job#: [id number] cc:NICOLAS HERNANDEZ MD
[2017-07-22] MEDS ORDERED: DIGOXIN 0.125 MG TAB PO ONE (21:15)
[2017-07-22 21:41] VITALS: BP 104/64
--- NOTE | 2017-07-22 22:32 | Consultation ---
DATE OF CONSULTATION: CARDIOLOGY CONSULTATION NOTE ATTENDING PHYSICIAN: Dr. Nicolas Butts CLINICAL HISTORY: This is a 51-year-old man known to me from previous evaluation, admitted via the emergency room because of recurrent atrial flutter with rapid ventricular rate. This patient was hospitalized for the same, recently discharged approximately a week ago. He did well until 2 days ago when he developed dizziness and fell, striking his left anterior chest. He went to see Dr. Hosea Jiang, and was found to have recurrent atrial flutter/fibrillation with rapid ventricular rate. He was sent back to the emergency room where upon he was readmitted. I was not called until approximately 12 to 24 hours later. PAST MEDICAL HISTORY: Remarkable for hypertension, diabetes, possible sleep apnea. Previous echocardiogram showed ejection fraction 45%, repeat echocardiogram at this time showed ejection fraction approximately 35%. FAMILY HISTORY: Unknown. REVIEW OF SYSTEMS: Noncontributory. PHYSICAL EXAMINATION: GENERAL: He is alert and coherent, appears to be comfortable. CARDIAC: Jugular veins were not distended. S1, S2 were irregularly irregular. LUNGS: Clear. ABDOMEN: Soft. Bowel sounds were present. EXTREMITIES: Showed no cyanosis, clubbing, or edema. IMPRESSION 1. Atrial flutter with rapid ventricular response, status post previous cardioversion with the patient stating that he has been taking his Rythmol. 2. Cardiomyopathy, ejection fraction previously 45%, now 35%. 3. Diabetes. 4. Hypertension. 5. Unclear history of recent pneumonia. RECOMMENDATION: Diuresis. Consider atrial flutter ablation. Thank you very much. Job#: [id number] DRElpidio cc:MD NICOLAS RAJPUT MD
[2017-07-23] VITALS (10 sets, daily range): BP systolic 104–117; BP diastolic 64–85
[2017-07-23 06:43] LABS: BASOPHILS % 0.2 % (0.0-1.0); EOSINOPHILS # (AUTO) 0.3 (0.0-0.4); EOSINOPHILS % 2.1 % (0.0-6.0); HEMATOCRIT 54.1 % (38.2-49.6); HEMOGLOBIN 15.2 g/dL (14.0-18.0); LYMPHOCYTES # (AUTO) 2.3 (1.0-3.2); LYMPHOCYTES % 18.7 % (18.0-39.1); MEAN CORPUSCULAR HEMOGLOBIN 21.8 pg (28-32); MEAN CORPUSCULAR HGB CONC 28.1 g/dL (31-35); MEAN CORPUSCULAR VOLUME 77.6 fL (81-99); MONOCYTES # (AUTO) 1.2 (0.2-0.8); MONOCYTES % 9.4 % (4.4-11.3); NEUTROPHILS # (AUTO) 8.6 (2.1-6.9); NEUTROPHILS % 68.8 % (38.7-80.0); PLATELET COUNT 363 x10e3/uL (140-360); RED BLOOD COUNT 6.97 x10e6/uL (4.3-5.7); RED CELL DISTRIBUTION WIDTH 23.1 % (11.7-14.4)
[2017-07-23 07:11] LABS: ANION GAP 13.5 mmol/L (8-16); BLOOD UREA NITROGEN 19 mg/dL (7-26); BUN/CREATININE RATIO 19 (6-25); CALCIUM 8.9 mg/dL (8.4-10.2); CARBON DIOXIDE 36 mmol/L (22-29); CHLORIDE 95 mmol/L (98-107); CREATININE, SERUM 0.99 mg/dL (0.72-1.25); EST GLOMERULAR FILTRATION RATE > 60 ML/MIN (60-); GLUCOSE 177 mg/dL (74-118); MAGNESIUM 1.7 MG/DL (1.3-2.1); POTASSIUM 4.5 mmol/L (3.5-5.1); SODIUM 140 mmol/L (136-145)
[2017-07-23] MEDS: INSULIN REGULAR, HUMAN 100 UNIT/1 ML 3ML VIAL SQ SCH ×4 (07:30→20:34)
[2017-07-23] MEDS: PANTOPRAZOLE SOD 40 MG TABEC PO SCH (08:15)
[2017-07-23] MEDS: POTASSIUM CHLORIDE 20 MEQ TAB CR PO SCH (08:15)
[2017-07-23] MEDS: SITAGLIPTIN 100 MG TAB PO SCH (08:15)
[2017-07-23] MEDS: RIVAROXABAN 10 MG TABLET PO SCH (08:15)
[2017-07-23] MEDS: ASPIRIN 81 MG ENTERIC COATED PO SCH (08:15)
[2017-07-23] MEDS: METFORMIN HCL 500 MG TAB PO SCH ×2 (08:15→17:21)
[2017-07-23] MEDS: DIGOXIN 0.125 MG TAB PO SCH (08:15)
[2017-07-23] MEDS: FUROSEMIDE 40 MG TAB PO SCH (08:15)
[2017-07-23] MEDS ORDERED: DIGOXIN INJ 0.25 MG/ML 2 ML AMP IV ONE (09:15)
[2017-07-23] MEDS ORDERED: DIGOXIN INJ 0.25 MG/ML 2 ML AMP ONE (09:15)
[2017-07-23] MEDS: AMIODARONE HCL 900 MG in DEXTROSE 5 % 500ML BOTTLE 500 ML IV SCH (11:12)
[2017-07-23] MEDS: SIMVASTATIN 20 MG TAB PO SCH (20:37)
[2017-07-24] VITALS (8 sets, daily range): BP systolic 110–132; BP diastolic 71–87
[2017-07-24] MEDS ORDERED: AMIODARONE 900MG 500 ML IV ONE (01:35)
[2017-07-24] MEDS: AMIODARONE HCL 900 MG in DEXTROSE 5 % 500ML BOTTLE 500 ML IV SCH (01:36)
[2017-07-24 06:06] LABS: BASOPHILS % 0.2 % (0.0-1.0); EOSINOPHILS # (AUTO) 0.2 (0.0-0.4); EOSINOPHILS % 1.5 % (0.0-6.0); HEMATOCRIT 52.3 % (38.2-49.6); HEMOGLOBIN 14.9 g/dL (14.0-18.0); LYMPHOCYTES % 16.4 % (18.0-39.1); MEAN CORPUSCULAR HEMOGLOBIN 21.7 pg (28-32); MEAN CORPUSCULAR HGB CONC 28.5 g/dL (31-35); MEAN CORPUSCULAR VOLUME 76.1 fL (81-99); MONOCYTES # (AUTO) 1.1 (0.2-0.8); MONOCYTES % 8.9 % (4.4-11.3); NEUTROPHILS # (AUTO) 8.8 (2.1-6.9); NEUTROPHILS % 72.3 % (38.7-80.0); PLATELET COUNT 309 x10e3/uL (140-360); RED BLOOD COUNT 6.87 x10e6/uL (4.3-5.7); RED CELL DISTRIBUTION WIDTH 23.2 % (11.7-14.4)
[2017-07-24 06:27] LABS: ANION GAP 12.2 mmol/L (8-16); BLOOD UREA NITROGEN 18 mg/dL (7-26); BUN/CREATININE RATIO 21 (6-25); CALCIUM 8.7 mg/dL (8.4-10.2); CARBON DIOXIDE 32 mmol/L (22-29); CHLORIDE 98 mmol/L (98-107); CREATININE, SERUM 0.85 mg/dL (0.72-1.25); EST GLOMERULAR FILTRATION RATE > 60 ML/MIN (60-); GLUCOSE 168 mg/dL (74-118); POTASSIUM 4.2 mmol/L (3.5-5.1); SODIUM 138 mmol/L (136-145)
[2017-07-24] MEDS: PANTOPRAZOLE SOD 40 MG TABEC PO SCH (08:30)
[2017-07-24] MEDS: ASPIRIN 81 MG ENTERIC COATED PO SCH (08:30)
[2017-07-24] MEDS: DIGOXIN 0.125 MG TAB PO SCH (08:30)
[2017-07-24] MEDS: METFORMIN HCL 500 MG TAB PO SCH ×2 (08:30→17:00)
[2017-07-24] MEDS: RIVAROXABAN 10 MG TABLET PO SCH (08:30)
[2017-07-24] MEDS: SITAGLIPTIN 100 MG TAB PO SCH (08:30)
[2017-07-24] MEDS: INSULIN REGULAR, HUMAN 100 UNIT/1 ML 3ML VIAL SQ SCH ×4 (08:30→20:09)
[2017-07-24] MEDS: POTASSIUM CHLORIDE 20 MEQ TAB CR PO SCH (08:30)
[2017-07-24] MEDS: FUROSEMIDE 40 MG TAB PO SCH (09:44)
[2017-07-24] MEDS: SIMVASTATIN 20 MG TAB PO SCH (22:00)
[2017-07-25] VITALS (7 sets, daily range): BP systolic 105–136; BP diastolic 63–91
[2017-07-25 06:49] LABS: BASOPHILS % 0.3 % (0.0-1.0); EOSINOPHILS # (AUTO) 0.2 (0.0-0.4); EOSINOPHILS % 2.2 % (0.0-6.0); HEMATOCRIT 50.9 % (38.2-49.6); HEMOGLOBIN 14.4 g/dL (14.0-18.0); LYMPHOCYTES % 20.6 % (18.0-39.1); MEAN CORPUSCULAR HGB CONC 28.3 g/dL (31-35); MEAN CORPUSCULAR VOLUME 77.8 fL (81-99); MONOCYTES % 10.3 % (4.4-11.3); NEUTROPHILS # (AUTO) 6.4 (2.1-6.9); NEUTROPHILS % 66.1 % (38.7-80.0); PLATELET COUNT 267 x10e3/uL (140-360); RED BLOOD COUNT 6.54 x10e6/uL (4.3-5.7); RED CELL DISTRIBUTION WIDTH 23.2 % (11.7-14.4)
[2017-07-25 07:10] LABS: ANION GAP 10.8 mmol/L (8-16); BLOOD UREA NITROGEN 15 mg/dL (7-26); BUN/CREATININE RATIO 19 (6-25); CALCIUM 8.7 mg/dL (8.4-10.2); CARBON DIOXIDE 33 mmol/L (22-29); CHLORIDE 96 mmol/L (98-107); CREATININE, SERUM 0.81 mg/dL (0.72-1.25); EST GLOMERULAR FILTRATION RATE > 60 ML/MIN (60-); GLUCOSE 145 mg/dL (74-118); POTASSIUM 3.8 mmol/L (3.5-5.1); SODIUM 136 mmol/L (136-145)
[2017-07-25] MEDS: INSULIN REGULAR, HUMAN 100 UNIT/1 ML 3ML VIAL SQ SCH ×4 (07:30→21:00)
[2017-07-25] MEDS: PANTOPRAZOLE SOD 40 MG TABEC PO SCH (08:30)
[2017-07-25] MEDS: SITAGLIPTIN 100 MG TAB PO SCH (08:46)
[2017-07-25] MEDS: POTASSIUM CHLORIDE 20 MEQ TAB CR PO SCH (08:46)
[2017-07-25] MEDS: METFORMIN HCL 500 MG TAB PO SCH ×2 (08:46→17:49)
[2017-07-25] MEDS: ASPIRIN 81 MG ENTERIC COATED PO SCH (08:46)
[2017-07-25] MEDS: DIGOXIN 0.125 MG TAB PO SCH (08:47)
[2017-07-25] MEDS: RIVAROXABAN 10 MG TABLET PO SCH (08:47)
[2017-07-25] MEDS: FUROSEMIDE 40 MG TAB PO SCH (08:47)
[2017-07-25] MEDS: AMIODARONE HCL 900 MG in DEXTROSE 5 % 500ML BOTTLE 500 ML IV SCH (11:12)
[2017-07-25] MEDS: AMIODARONE HCL 200 MG TAB PO SCH (17:59)
[2017-07-25] MEDS: SIMVASTATIN 20 MG TAB PO SCH (21:00)
[2017-07-26] VITALS (8 sets, daily range): BP systolic 113–132; BP diastolic 71–94
[2017-07-26] MEDS: AMIODARONE HCL 200 MG TAB PO SCH ×4 (03:04→23:38)
--- NOTE | 2017-07-26 03:17 | Consultation ---
DATE OF CONSULTATION: July 25, 2017 REASON FOR CONSULTATION: Atrial fibrillation with rapid ventricular response, persistent. HPI: Mr. Jiang is a pleasant 51-year-old gentleman with a recent history of atrial fibrillation, which has been persistent. Precipitating factors appear to be obstructive sleep apnea and hypertension. He was diagnosed and started on antiarrhythmics and also Xarelto 3 weeks ago. He came back to the hospital with AFib with rapid ventricular response, then later organized to atrial flutter. He is difficult to rate control and upon exertion heart rates jump up to 160. He is fairly symptomatic. EP has been consulted. Also cardiac-norris, he has mild to moderately depressed low EF which probably is secondary to AFib and also LVH. PAST MEDICAL HISTORY: Hypertension, diabetes, hyperlipidemia, obesity, obstructive sleep apnea, persistent AFib, low EF, LVH, and left atrial enlargement. SOCIAL HISTORY: at the bedside. Patient is Guamanian speaking, but speaks [place] as well. No drugs or smoking. FAMILY HISTORY: Negative for sudden or atrial fibrillation. REVIEW OF SYSTEMS: As above. Otherwise, negative for fevers, chills, loss of vision, blurry vision, ear pain, ear discharge, headache, or numbness. Positive for chest pain and palpitations. Negative for cough, sputum, nausea, vomiting, dysuria, frequency, rash, bruise, bleeding, clots, anxiety, depression, heat or cold intolerance. PHYSICAL EXAMINATION VITAL SIGNS: Blood pressure 130/78, heart rate is currently 110 beats per minute. GENERAL: The patient is lying in bed in no apparent distress. Has obesity. NECK: No lymphadenopathy. Thyroid exam is unremarkable. CARDIOVASCULAR: S1 and S2 irregularly irregular. LUNGS: Clear bilaterally. ABDOMEN: Soft and benign. EXTREMITIES: Warm and dry. NEURO: Nonfocal. PSYCH: No anxiety or depression. Creatinine is 0.85. EKG last one shows typical atrial flutter at a rate of 107. Echo showed EF of 40 to 45%, left atrial enlargement, and LVH. ASSESSMENT AND PLAN: A 51-year-old gentleman with symptomatic persistent atrial fibrillation, newly diagnosed. Obstructive sleep apnea on hypertension were probably the precipitating causes. He is on a continuous positive airway pressure. He needs treatment for his atrial fibrillation and he needs definitive treatment because of high symptoms and unresponsive to medical management. I recommend atrial fibrillation ablation and atrial flutter ablation for this gentleman. However, prior to hospital discharge, he would require a transesophageal echocardiogram and cardioversion, and I will set him up as an outpatient for a pulmonary isolation. He understands and is agreeable. Risks and benefits are explained. In summary 1. ANA and cardioversion as inpatient. 2. AFib and atrial flutter ablation as an outpatient. 3. Continue amiodarone and Xarelto. We will discuss with Dr. Aden and Dr. Yang. Job#: [id number] CF
[2017-07-26 06:28] LABS: BASOPHILS % 0.2 % (0.0-1.0); EOSINOPHILS # (AUTO) 0.2 (0.0-0.4); EOSINOPHILS % 1.7 % (0.0-6.0); HEMATOCRIT 48.4 % (38.2-49.6); HEMOGLOBIN 13.8 g/dL (14.0-18.0); MEAN CORPUSCULAR HEMOGLOBIN 22.5 pg (28-32); MEAN CORPUSCULAR HGB CONC 28.5 g/dL (31-35); MONOCYTES # (AUTO) 1.3 (0.2-0.8); MONOCYTES % 11.4 % (4.4-11.3); NEUTROPHILS # (AUTO) 7.9 (2.1-6.9); NEUTROPHILS % 69.4 % (38.7-80.0); PLATELET COUNT 273 x10e3/uL (140-360); RED BLOOD COUNT 6.13 x10e6/uL (4.3-5.7); RED CELL DISTRIBUTION WIDTH 23.3 % (11.7-14.4)
[2017-07-26 06:50] LABS: ANION GAP 12.3 mmol/L (8-16); BLOOD UREA NITROGEN 13 mg/dL (7-26); BUN/CREATININE RATIO 15 (6-25); CALCIUM 9.1 mg/dL (8.4-10.2); CARBON DIOXIDE 35 mmol/L (22-29); CHLORIDE 96 mmol/L (98-107); CREATININE, SERUM 0.86 mg/dL (0.72-1.25); EST GLOMERULAR FILTRATION RATE > 60 ML/MIN (60-); GLUCOSE 160 mg/dL (74-118); POTASSIUM 4.3 mmol/L (3.5-5.1); SODIUM 139 mmol/L (136-145)
[2017-07-26] MEDS: INSULIN REGULAR, HUMAN 100 UNIT/1 ML 3ML VIAL SQ SCH ×4 (07:30→20:03)
[2017-07-26] MEDS: PANTOPRAZOLE SOD 40 MG TABEC PO SCH (07:30)
[2017-07-26 07:55] LABS: ANISOCYTOSIS SLIG; PLATELET ESTIMATE ADEQUATE; PLATELET MORPHOLOGY COMMENT NORMAL; POIKILOCYTOSIS SLIGHT; RBC MORPHOLOGY COMMENT NORMAL
[2017-07-26] MEDS: METFORMIN HCL 500 MG TAB PO SCH ×3 (08:32→17:08)
[2017-07-26] MEDS: ASPIRIN 81 MG ENTERIC COATED PO SCH (09:00)
[2017-07-26] MEDS: RIVAROXABAN 10 MG TABLET PO SCH (09:00)
[2017-07-26] MEDS: SITAGLIPTIN 100 MG TAB PO SCH (09:51)
[2017-07-26] MEDS: POTASSIUM CHLORIDE 20 MEQ TAB CR PO SCH (09:52)
[2017-07-26] MEDS: DIGOXIN 0.125 MG TAB PO SCH (09:53)
[2017-07-26] MEDS: FUROSEMIDE 40 MG TAB PO SCH (09:58)
[2017-07-26] MEDS: AMIODARONE HCL 900 MG in DEXTROSE 5 % 500ML BOTTLE 500 ML IV SCH (11:12)
[2017-07-26] MEDS ORDERED: CEFTRIAXONE SOD 1 GM VIAL IV SCH (15:00)
[2017-07-26] MEDS: SIMVASTATIN 20 MG TAB PO SCH (21:50)
[2017-07-27] VITALS (10 sets, daily range): BP systolic 118–148; BP diastolic 7–88
[2017-07-27 06:19] LABS: BASOPHILS % 0.3 % (0.0-1.0); EOSINOPHILS # (AUTO) 0.3 (0.0-0.4); EOSINOPHILS % 2.9 % (0.0-6.0); LYMPHOCYTES # (AUTO) 1.9 (1.0-3.2); LYMPHOCYTES % 21.5 % (18.0-39.1); MEAN CORPUSCULAR HEMOGLOBIN 22.2 pg (28-32); MEAN CORPUSCULAR VOLUME 79.4 fL (81-99); MONOCYTES # (AUTO) 1.1 (0.2-0.8); MONOCYTES % 11.8 % (4.4-11.3); NEUTROPHILS # (AUTO) 5.6 (2.1-6.9); NEUTROPHILS % 62.9 % (38.7-80.0); PLATELET COUNT 244 x10e3/uL (140-360); RED CELL DISTRIBUTION WIDTH 23.7 % (11.7-14.4)
[2017-07-27 06:34] LABS: ANION GAP 13.3 mmol/L (8-16); BLOOD UREA NITROGEN 13 mg/dL (7-26); BUN/CREATININE RATIO 15 (6-25); CALCIUM 9.1 mg/dL (8.4-10.2); CARBON DIOXIDE 35 mmol/L (22-29); CHLORIDE 97 mmol/L (98-107); CREATININE, SERUM 0.88 mg/dL (0.72-1.25); EST GLOMERULAR FILTRATION RATE > 60 ML/MIN (60-); GLUCOSE 127 mg/dL (74-118); POTASSIUM 4.3 mmol/L (3.5-5.1); SODIUM 141 mmol/L (136-145)
[2017-07-27 07:27] LABS: ANISOCYTOSIS SLIGHT; PLATELET ESTIMATE ADEQUATE; PLATELET MORPHOLOGY COMMENT FEW LARGE; RBC MORPHOLOGY COMMENT NORMAL
[2017-07-27] MEDS: INSULIN REGULAR, HUMAN 100 UNIT/1 ML 3ML VIAL SQ SCH ×2 (07:30→12:40)
[2017-07-27] MEDS ORDERED: FENTANYL CITRATE/PF 100MCG/2 ML INJ ONE (08:40)
[2017-07-27] MEDS ORDERED: MIDAZOLAM HCL 2 MG/2 ML VIAL ONE (08:41)
[2017-07-27] MEDS ORDERED: SODIUM CHLORIDE 0.9% 1000ML 1,000 ML ONE (08:43)
[2017-07-27] MEDS: METFORMIN HCL 500 MG TAB PO SCH (09:00)
--- NOTE | 2017-07-27 11:03 | Operative Report ---
DATE OF PROCEDURE: TRANSESOPHAGEAL ECHOCARDIOGRAM ATTENDING PHYSICIAN: Dr. Butts. CHAINMAN: Dr. Aden. CLINICAL HISTORY/INDICATION: A 51-year-old man with rapid atrial flutter requiring ablation. The electrophysiology has requested ANA prior to ablation. The patient was initially going to have this procedure done at the medical laboratory technologist but was later taken to endoscopy suite. The nurse supplied apparently has never seen a case before and is not aware how to start the time out. A 2nd trainee was in the room, who could not find any towel to put under the patient. No gloves or gowns were available. The patient was given 1 mg Versed. Telemetry was not hooked up, oxygen was not hooked up and the nurse was able to find the oxygen outlet. Patient's saturation was 88. We were unable to get telemetry hookup due to the inexperience of the staff. The patient attempted to swallow the transducer, but no suction was available and we could not find the suction in the room. The case was therefore canceled. The patient and family were told that if the procedure was required it would be done at [facility]. Job#: [id number] KB
[2017-07-27] MEDS: FUROSEMIDE 40 MG TAB PO SCH (12:24)
[2017-07-27] MEDS: POTASSIUM CHLORIDE 20 MEQ TAB CR PO SCH (12:24)
[2017-07-27] MEDS: SITAGLIPTIN 100 MG TAB PO SCH (12:24)
[2017-07-27] MEDS: AMIODARONE HCL 200 MG TAB PO SCH (12:24)
[2017-07-27] MEDS ORDERED: RIVAROXABAN 10 MG TABLET PO SCH (12:28)
[2017-07-27] MEDS: PANTOPRAZOLE SOD 40 MG TABEC PO SCH (12:28)
[2017-07-27] MEDS: DIGOXIN 0.125 MG TAB PO SCH (12:50)
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
== END 2017-07-27 14:59 | disposition other institution (70) | DRG 309 ==
LOC: ER 16:21 → ERHOLD 18:29 → IMCU 07-22 17:03
PROVIDERS: ADMIT Internal Medicine; ATTEND Internal Medicine
DX: I48.2 Chronic atrial fibrillation (principal); I50.22 Chronic systolic (congestive) heart failure; I11.0 Hypertensive heart disease with heart failure; Z79.01 Long term (current) use of anticoagulants; E11.65 Type 2 diabetes mellitus with hyperglycemia; E78.5 Hyperlipidemia, unspecified; D72.829 Elevated white blood cell count, unspecified; I48.1 Persistent atrial fibrillation; G47.33 Obstructive sleep apnea (adult) (pediatric)
CPT/HCPCS: 36415; 71045; 80048; 80053; 82550; 82553; 82948; 83605; 83690; 83735; 83880; 84100; 84484; 85025; 85610; 87040; 87086; 93005; 93306; 94660; 96360; 96365; 96372; 96374; 99285; J0696; J1160; J2250; J7030; J7040

== ENCOUNTER 2018-11-29 18:15 | Emergency (ER) | payer BC ==
[~2018-11-29] VITALS: Ht 200.7 cm; Wt 110.2 kg
--- OUTSIDE RECORDS SUMMARY | 2018-11-29 18:17 | XMS REPORT | Continuity of Care Document ---
Author Author [facility] Interface Address Unknown Phone Unavailable Problems Problem Status Onset Date Classification Date Reported Comments Source Atrial flutter with rapid ventricular response Active Problem 07/27/2017 [facility] Medications Medication Details Route Status Patient Instructions Ordering Provider Order Date Source Furosemide 40 Mg Tablet Daily Active [place] 07/16/2017 [facility] Potassium Chloride 20 Meq Tab.er.prt Daily Active [place] 07/16/2017 [facility] Prednisone 10 Mg Tab Use As Directed Active TAKE 40 MG BID X3 DAYS THEN TAKE 30 MG BID X3 DAYS THEN TAKE 20 MG BID X3 DAYS THEN TAKE 10 MG BID X3 DAYS THEN TAKE 10 MG DAILY X3 DAYS THEN STOP [place] 07/16/2017 [facility] Propafenone Hcl 150 Mg Tab Every 8 Hours Active [place] 07/16/2017 [facility] Rivaroxaban (Xarelto) 10 Mg Tablet Daily Active [place] 07/16/2017 [facility] Aspirin (Aspir 81) 81 Mg Tablet.dr Daily Active [facility] Glimepiride 2 Mg Tablet Twice A Day Active [facility] Lisinopril 10 Mg Tablet Daily Active [facility] Metformin Hcl 500 Mg Tablet Twice A Day Active [facility] Rosuvastatin Calcium (Crestor) 10 Mg Tab Today At 9:00PM Active THERAPEUTICALLY SUBSTITUTED WITH SIMVASTATIN 40MG [facility] Sitagliptin Phosphate (Januvia) 100 Mg Tablet Daily Active [facility] Allergies, Adverse Reactions, Alerts Substance Category Reaction Severity Reaction type Status Date Reported Comments Source Immunizations Immunization Date Given Site Status Last Updated Comments Source Results Order Name Results Value Reference Range Date Interpretation Comments Source Capillary blood glucose measurement by glucometer (mass/volume) Capillary blood glucose measurement by glucometer (mass/volume) 220 70 - 120 07/27/2017 [facility] Automated blood basophil count (count/volume) Automated blood basophil count (count/volume) 0.0 0.0 - 0.1 07/27/2017 [facility] Automated blood basophil count as percentage of total leukocytes Automated blood basophil count as percentage of total leukocytes 0.3 0.0 - 1.0 07/27/2017 [facility] Automated blood eosinophil count Automated blood eosinophil count 0.3 0.0 - 0.4 07/27/2017 [facility] Automated blood eosinophil count as percentage of total leukocytes Automated blood eosinophil count as percentage of total leukocytes 2.9 0.0 - 6.0 07/27/2017 [facility] Automated blood hematocrit (volume fraction) Automated blood hematocrit (volume fraction) 50.0 38.2 - 49.6 07/27/2017 [facility] Automated blood lymphocyte count as percentage ot total leukocytes Automated blood lymphocyte count as percentage ot total leukocytes 21.5 18.0 - 39.1 07/27/2017 [facility] Automated blood monocyte count as percentage of total leukocytes Automated blood monocyte count as percentage of total leukocytes 11.8 4.4 - 11.3 07/27/2017 [facility] Automated blood neutrophil count Automated blood neutrophil count 5.6 2.1 - 6.9 07/27/2017 [facility] Automated blood platelet count (count/volume) Automated blood platelet count (count/volume) 244 140 - 360 07/27/2017 [facility] Automated blood segmented neutrophil count as percentage of total leukocytes Automated blood segmented neutrophil count as percentage of total leukocytes 62.9 38.7 - 80.0 07/27/2017 [facility] Automated erythrocyte mean corpuscular hemoglobin (mass per erythrocyte) Automated erythrocyte mean corpuscular hemoglobin (mass per erythrocyte) 22.2 28 - 32 07/27/2017 [facility] Automated erythrocyte mean corpuscular hemoglobin concentration measurement (mass/volume) Automated erythrocyte mean corpuscular hemoglobin concentration measurement (mass/volume) 28.0 31 - 35 07/27/2017 [facility] Automated erythrocyte mean corpuscular volume Automated erythrocyte mean corpuscular volume 79.4 81 - 99 07/27/2017 [facility] Blood anisocytosis detection by light microscopy Blood anisocytosis detection by light microscopy SLIGHT 07/27/2017 [facility] Blood erythrocytes automated count (number/volume) Blood erythrocytes automated count (number/volume) 6.30 4.3 - 5.7 07/27/2017 [facility] Blood hemoglobin measurement (moles/volume) Blood hemoglobin measurement (moles/volume) 14.0 14.0 - 18.0 07/27/2017 [facility] Blood leukocytes automated count (number/volume) Blood leukocytes automated count (number/volume) 8.89 4.8 - 10.8 07/27/2017 [facility] Blood lymphocytes count (number/volume) Blood lymphocytes count (number/volume) 1.9 1.0 - 3.2 07/27/2017 [facility] Blood monocytes automated count (number/volume) Blood monocytes automated count (number/volume) 1.1 0.2 - 0.8 07/27/2017 [facility] Blood platelets count by estimate (number/volume) Blood platelets count by estimate (number/volume) ADEQUATE 07/27/2017 [facility] Estimated glomerular filtration rate (GFR) determination Estimated glomerular filtration rate (GFR) determination null 60 07/27/2017 [facility] Glucose measurement Glucose measurement 127 74 - 118 07/27/2017 [facility] Platelet morphology Platelet morphology FEW LARGE 07/27/2017 [facility] RBC morphology RBC morphology NORMAL 07/27/2017 [facility] Serum or plasma anion gap Serum or plasma anion gap 13.3 8 - 16 07/27/2017 [facility] Serum or plasma calcium measurement (mass/volume) Serum or plasma calcium measurement (mass/volume) 9.1 8.4 - 10.2 07/27/2017 [facility] Serum or plasma carbon dioxide, total measurement (moles/volume) Serum or plasma carbon dioxide, total measurement (moles/volume) 35 22 - 29 07/27/2017 [facility] Serum or plasma chloride measurement (moles/volume) Serum or plasma chloride measurement (moles/volume) 97 98 - 107 07/27/2017 [facility] Serum or plasma creatinine measurement (mass/volume) Serum or plasma creatinine measurement (mass/volume) 0.88 0.72 - 1.25 07/27/2017 [facility] Serum or plasma potassium measurement (moles/volume) Serum or plasma potassium measurement (moles/volume) 4.3 3.5 - 5.1 07/27/2017 [facility] Serum or plasma sodium measurement (moles/volume) Serum or plasma sodium measurement (moles/volume) 141 136 - 145 07/27/2017 [facility] Serum or plasma urea nitrogen measurement (mass/volume) Serum or plasma urea nitrogen measurement (mass/volume) 13 7 - 26 07/27/2017 [facility] Serum or plasma urea nitrogen/creatinine mass ratio Serum or plasma urea nitrogen/creatinine mass ratio 15 6 - 25 07/27/2017 [facility] Red Cell Distribution Width 23.7 11.7 - 14.4 07/27/2017 [facility] IM GRANULOCYTES % 0.6 0.0 - 1.0 07/27/2017 [facility] Absolute Immature Granulocyte (auto 0.05 0 - 0.1 07/27/2017 [facility] Blood poikilocytosis detection by light microscopy Blood poikilocytosis detection by light microscopy SLIGHT 07/26/2017 [facility] Serum or plasma magnesium measurement (mass/volume) Serum or plasma magnesium measurement (mass/volume) 1.7 1.3 - 2.1 07/23/2017 [facility] B-Type Natriuretic Peptide 57.9 0 - 100 07/23/2017 [facility] Serum or plasma creatine kinase MB measurement (mass/volume) Serum or plasma creatine kinase MB measurement (mass/volume) 0.90 0.00 - 5.00 07/22/2017 [facility] Serum or plasma creatine kinase measurement (enzymatic activity/volume) Serum or plasma creatine kinase measurement (enzymatic activity/volume) 33 30 - 200 07/22/2017 [facility] Serum or plasma troponin i.cardiac measurement by detection limit <=0.01 NG/ml (mass/volume) Serum or plasma troponin i.cardiac measurement by detection limit <=0.01 NG/ml (mass/volume) 0.034 0 - 0.300 07/22/2017 [facility] Blood hypochromia detection by light microscopy Blood hypochromia detection by light microscopy SLIGHT 07/22/2017 [facility] Phosphorus measurement Phosphorus measurement 4.7 2.3 - 4.7 07/22/2017 [facility] Plasma globulin measurement (mass/volume) Plasma globulin measurement (mass/volume) 3.1 2.3 - 3.5 07/22/2017 [facility] Serum or plasma alanine aminotransferase measurement (enzymatic activity/volume) Serum or plasma alanine aminotransferase measurement (enzymatic activity/volume) 52 0 - 55 07/22/2017 [facility] Serum or plasma albumin measurement (mass/volume) Serum or plasma albumin measurement (mass/volume) 2.7 3.5 - 5.0 07/22/2017 [facility] Serum or plasma albumin/globulin mass ratio Serum or plasma albumin/globulin mass ratio 0.9 0.8 - 2.0 07/22/2017 [facility] Serum or plasma alkaline phosphatase measurement (enzymatic activity/volume) Serum or plasma alkaline phosphatase measurement (enzymatic activity/volume) 51 40 - 150 07/22/2017 [facility] Serum or plasma protein measurement (mass/volume) Serum or plasma protein measurement (mass/volume) 5.8 6.5 - 8.1 07/22/2017 [facility] Serum or plasma total bilirubin measurement (mass/volume) Serum or plasma total bilirubin measurement (mass/volume) 0.3 0.2 - 1.2 07/22/2017 [facility] Aspartate Amino Transf (AST/SGOT) 18 5 - 34 07/22/2017 [facility] Blood culture Blood culture NO GROWTH AFTER 5 DAYS, FINAL REPORT 07/21/2017 [facility] INR in Platelet poor plasma by Coagulation assay INR in Platelet poor plasma by Coagulation assay 1.16 07/21/2017 [facility] Prothrombin time (PT) in platelet poor plasma by coagulation assay Prothrombin time (PT) in platelet poor plasma by coagulation assay 15.4 11.9 - 14.5 07/21/2017 [facility] Serum or plasma lipase measurement (enzymatic activity/volume) Serum or plasma lipase measurement (enzymatic activity/volume) 10 8 - 78 07/21/2017 [facility] Lactic Acid Level 27.5 4.5 - 19.8 07/21/2017 [facility] Manual blood lymphocytes/100 leukocytes Manual blood lymphocytes/100 leukocytes 5 19 - 48 07/15/2017 [facility] Manual blood monocytes/100 leukocytes Manual blood monocytes/100 leukocytes 6 3.4 - 9.0 07/15/2017 [facility] Manual blood myelocytes/100 leukocytes Manual blood myelocytes/100 leukocytes 1 0 - 0 07/15/2017 [facility] Manual blood neutrophils/100 leukocytes Manual blood neutrophils/100 leukocytes 88 40 - 74 07/15/2017 [facility] Differential Total Cells Counted 100 07/15/2017 [facility] Serum or plasma trough vancomycin level at trough (mass/volume) Serum or plasma trough vancomycin level at trough (mass/volume) 7.0 5.0 - 10.0 07/14/2017 [facility] Arterial blood base excess by calculation Arterial blood base excess by calculation 17.0 -2 - 3 - 2 07/13/2017 [facility] Arterial blood bicarbonate measurement (moles/volume) Arterial blood bicarbonate measurement (moles/volume) 40 23 - 28 07/13/2017 [facility] Arterial blood oxygen saturation measurement Arterial blood oxygen saturation measurement 89.0 95 - 98 07/13/2017 [facility] Arterial blood pH measurement Arterial blood pH measurement 7.50 7.31 - 7.41 07/13/2017 [facility] Arterial Blood Partial Pressure CO2 51 41 - 51 07/13/2017 [facility] Arterial Blood Partial Pressure O2 53 80 - 105 07/13/2017 [facility] Serum or plasma thyrotropin measurement by detection limit <=0.005 miu/l (units/volume) Serum or plasma thyrotropin measurement by detection limit <=0.005 miu/l (units/volume) 0.464 0.350 - 4.940 07/13/2017 [facility] Serum or plasma digoxin measurement (mass/volume) Serum or plasma digoxin measurement (mass/volume) 0.44 0.8 - 2.0 07/10/2017 [facility] Blood lymphocytes variant count (number/volume) Blood lymphocytes variant count (number/volume) 2 07/08/2017 [facility] Blood polychromasia detection by light microscopy Blood polychromasia detection by light microscopy FEW 07/08/2017 [facility] Influenza virus A and B antigen identification by immunofluorescence Influenza virus A and B antigen identification by immunofluorescence NEGATIVE NEGATIVE 07/06/2017 [facility] Serum or plasma cholesterol in HDL measurement (mass/volume) Serum or plasma cholesterol in HDL measurement (mass/volume) 26 40 - 60 07/06/2017 [facility] Serum or plasma cholesterol in LDL measurement (mass/volume) Serum or plasma cholesterol in LDL measurement (mass/volume) 64 60 - 130 07/06/2017 [facility] Serum or plasma cholesterol measurement (mass/volume) Serum or plasma cholesterol measurement (mass/volume) 116 0 - 199 07/06/2017 [facility] Serum or plasma total cholesterol/cholesterol in HDL mass ratio Serum or plasma total cholesterol/cholesterol in HDL mass ratio 4.5 3.9 - 4.7 07/06/2017 [facility] Serum or plasma triglyceride measurement (mass/volume) Serum or plasma triglyceride measurement (mass/volume) 128 0 - 149 07/06/2017 [facility] Hemoglobin A1c Percent 9.0 4.0 - 7.0 07/06/2017 [facility] Automated urine sediment leukocyte count by microscopy (number/high power field) Automated urine sediment leukocyte count by microscopy (number/high power field) null 0 - 5 07/06/2017 [facility] Bacteria detection in urine sediment by light microscopy Bacteria detection in urine sediment by light microscopy FEW NONE 07/06/2017 [facility] Epithelial cells detection in urine sediment by light microscopy Epithelial cells detection in urine sediment by light microscopy RARE NONE 07/06/2017 [facility] Erythrocytes detection in urine sediment by light microscopy Erythrocytes detection in urine sediment by light microscopy null 0 - 5 07/06/2017 [facility] Specific gravity of Urine by Test strip Specific gravity of Urine by Test strip 1.015 1.010 - 1.025 07/06/2017 [facility] Urine clarity Urine clarity CLEAR CLEAR 07/06/2017 [facility] Urine color determination Urine color determination YELLOW YELLOW 07/06/2017 [facility] Urine erythrocytes detection Urine erythrocytes detection NEGATIVE NEGATIVE 07/06/2017 [facility] Urine glucose detection Urine glucose detection NEGATIVE NEGATIVE 07/06/2017 [facility] Urine ketones detection by automated test strip Urine ketones detection by automated test strip NEGATIVE NEGATIVE 07/06/2017 [facility] Urine leukocyte esterase detection by dipstick Urine leukocyte esterase detection by dipstick NEGATIVE NEGATIVE 07/06/2017 [facility] Urine nitrite detection Urine nitrite detection NEGATIVE NEGATIVE 07/06/2017 [facility] Urine pH measurement by automated test strip Urine pH measurement by automated test strip 5 5 - 7 07/06/2017 [facility] Urine protein measurement by test strip (mass/volume) Urine protein measurement by test strip (mass/volume) NEGATIVE NEGATIVE 07/06/2017 [facility] Urine total bilirubin measurement (mass/volume) Urine total bilirubin measurement (mass/volume) NEGATIVE NEGATIVE 07/06/2017 [facility] Urine urobilinogen measurement by test strip (mass/volume) Urine urobilinogen measurement by test strip (mass/volume) 0.2 0.2 - 1 07/06/2017 [facility] Free thyroxine index Free thyroxine index 2.3345 1.4 - 3.8 07/05/2017 [facility] Serum or plasma thyroxine (T4) measurement (mass/volume) Serum or plasma thyroxine (T4) measurement (mass/volume) 7.43 4.5 - 10.9 07/05/2017 [facility] Serum or plasma triiodothyronine resin uptake (T3RU) Serum or plasma triiodothyronine resin uptake (T3RU) 31.42 22.50 - 37.00 07/05/2017 [facility] Activated partial thromboplastin time (aPTT) in platelet poor plasma bycoagulation assay Activated partial thromboplastin time (aPTT) in platelet poor plasma bycoagulation assay 28.5 23.8 - 35.5 07/05/2017 [facility] Blood stomatocytes detection by light microscopy Blood stomatocytes detection by light microscopy SLIGHT 07/05/2017 [facility] Serum or plasma iron binding capacity measurement (mass/volume) Serum or plasma iron binding capacity measurement (mass/volume) 469 261 - 478 07/05/2017 [facility] Serum or plasma iron measurement (mass/volume) Serum or plasma iron measurement (mass/volume) 16 65 - 175 07/05/2017 [facility] Serum or plasma iron saturation measurement (mass fraction) Serum or plasma iron saturation measurement (mass fraction) 3 15 - 50 07/05/2017 [facility] Serum or plasma transferrin measurement (mass/volume) Serum or plasma transferrin measurement (mass/volume) 335 174 - 364 07/05/2017 [facility] Vital Signs Vital Sign Value Date Comments Source Encounters Location Location Details Encounter Type Encounter Number Reason For Visit Attending Provider ADM Date DC Date Status Source Discharged Inpatient [id number] NICOLAS HERNANDEZ MD 07/06/2017 07/16/2017 [facility] Discharged Inpatient [id number] NICOLAS HERNANDEZ MD 07/21/2017 07/27/2017 [facility] Procedures Procedure Code Date Perfomer Comments Source QUAKER OF CARDIAC RHYTHM, SINGLE [id number] 07/10/2017 [facility] Computed tomography of chest with contrast [id number] 07/09/2017 [facility] INSERTION OF ENDOTRACHEAL AIRWAY INTO TRACHEA, VIA OPENING [id number] 07/08/2017 [facility] INSERTION OF INFUSION DEV INTO SUP VENA CAVA, PERC APPROACH [id number] 07/08/2017 [facility] RESPIRATORY VENTILATION, GREATER THAN 96 CONSECUTIVE HOURS [id number] 07/06/2017 [facility] X-ray of chest, single view [id number] 07/05/2017 [facility]
--- OUTSIDE RECORDS SUMMARY | 2018-11-29 18:17 | XMS REPORT ---
Author [facility] Address Unknown Phone Unavailable Care Team Providers Care Orthotic And Prosthetic Technician Name Role Phone NICOLAS HERNANDEZ Unavailable Unavailable Payers Payer Name Policy Type Policy Number Effective Date Expiration Date Problems This patient has no known problems. Allergies, Adverse Reactions, Alerts Allergy Name Allergy Type Status Severity Reaction(s) Onset Date Inactive Date Treating Clinician Comments No Known Allergies DA Active U 2013-08-04 00:00:00 Medications This patient has no known medications. Results Test Description Test Time Test Comments Text Results Atomic Results Result Comments - CT CHEST W/O CONTRAST 2018-09-07 09:24:00 Name: RADHA JIANG [facility] : 1965 Age/S: 52 / M [address] [facility] Unit #: [id number] Loc: [place] [address] Phys: Andre Valente MD Acct: [id number] Dis Date: Status: REG CLI PHONE #: [phone] Exam Date: 09/07/2018 0825 FAX #: [phone] Reason: COPD UNSPECIFIED EXAMS: CPT CODE: [id number] CT CHEST W/O CONTRAST 85454 HISTORY: COPD. COMPARISON: CT chest from April 09, 2018. CT chest without contrast: Automated exposure control. The lungs are clear of infiltrates, effusion or congestion. Groundglass opacities may represent sequela of small airway disease. Suboptimal inspiration with dependent changes. Well-circumscribed pleural-based 9 mm nodule in the right lower lobe anteromedially. This was not seen on the previous exam. I would recommend 3 month follow-up. No other parenchymal mass or nodules are noted. No endobronchial lesions. No bronchiectasis, fibrosis or honeycombing. Normal caliber unopacified aorta and pulmonary arteries. Incompletely included thyroid glands are normal. No pathologic adenopathy. Esophageal wall is not thickened. Cardiac silhouette is mildly enlarged. No pericardial effusion is noted. Visualized upper abdomen is unremarkable. The subcutaneous tissues and the musculature are normal in appearance. No lytic or blastic lesions visible within the bony skeleton. DJD. IMPRESSION: Pleural-based 9 mm noncalcified right lower lobe anteromedially lung nodule is new from previous examination. 3 month follow-up. No infiltrates, effusion or congestion. No pathologic adenopathy. at 0924 Reported and signed by: Dar Mariee M.D. CC: Andre Valente MD; Hosea Jiang Technologist:Jai Bahena RT(R),(MR),(CT); CTDI: DLP: Trnscb Date/Time: 09/07/2018 (923) t.SDR.TH4 Orig Print D/T: S: 09/07/2018 (926) CTDI: DLP: PAGE 1 Signed Report ECHO COMPLETE (ECHOCARDIOGRAM) [place] [address] Patient Name : RADHA JIANG MR #: [id number] : 1965 Age/Sex: 51/M Adm Physician : NICOLAS HERNANDEZ MD Admit Date : 07/21/17 Location : [facility] Room/Bed : [place] [address] REPORT: Cardiology Report DATE OF STUDY: July 22, 2017 ECHOCARDIOGRAM M-MODE: Dilated left atrium. Left ventricular hypertrophy. Diminished left ventricular contractility. Ejection fraction is approximately 35%. Mitral, aortic and tricuspid valves are grossly normal. There is no pericardial effusion. SECTOR SCAN: Dilated left atrium. Left ventricular hypertrophy. Normal contractility. Normal mitral, aortic and tricuspid valves. No pericardial effusion. CARDIAC DOPPLER STUDY WITH COLOR: Trace tricuspid regurgitation. CONCLUSIONS: 1. Left ventricular hypertrophy with ejection fraction of approximately 35% compared to the previous study ejection fraction appears to be somewhat diminished. 2. Mildly enlarged left atrium. 3. Trace tricuspid regurgitation. Job#: [id number] GH cc: NICOLAS HERNANDEZ MD Signature Date Dictated By: DANNY THOMPSON MD Transcribed By: SMEDS on 07/22/17 <Electronically signed by DANNY THOMPSON MD><<Signature on File>>07/28/17 0834 COPY TO: CHEST SINGLE (PORTABLE) [place] [address] Patient Name: RADHA JIANG MR #: [id number] : 1965 Age/Sex: 51/M Req #: [id number] Adm Physician: Ordered by: JASBIR MACHUCA MD Report #: [id number] Location: ER Room/Bed: Procedure: [id number] DX/CHEST SINGLE (PORTABLE) Exam Date: 07/21/17 Exam Time: 1745 REPORT STATUS: Signed PROCEDURE: A single AP view of the chest. COMPARISON: [facility], , CHEST SINGLE (PORTABLE), 07/13/2017, 5:26. INDICATIONS: CHEST PAIN FINDINGS: Lines/tubes: None. Lungs: The lungs are well inflated and clear. There is no evidence of pneumonia or pulmonary edema. Pleura: There is no pleural effusion or pneumothorax. Heart and mediastinum: The heart and the mediastinum are unremarkable. Bones: No acute bony abnormality. IMPRESSION: 1. No acute cardiopulmonary abnormalities. Ernesto Perez M.D. Dictated by: Ernesto Perez M.D. on 07/21/2017 at 18:38 Electronically approved by: Ernesto Perez M.D. on 07/21/2017 at 18:38 Dictated By: ERNESTO PEREZ MD 37 Transcribed By: BRANT on 07/21/171837 COPY TO: JASBIR MACHUCA MD CHEST SINGLE (PORTABLE) [place] [address] Patient Name: RADHA JIANG MR #: [id number] : 1965 Age/Sex: 51/M Req #: [id number] Adm Physician: NICOLAS HERNANDEZ MD Ordered by: SRINIVAS STEPHENS MD Report #: [id number] Location: ICU Room/Bed: ICU [facility] Procedure: [id number] DX/CHEST SINGLE (PORTABLE) Exam Date: 07/13/17 Exam Time: 0500 REPORT STATUS: Signed EXAMINATION: CHEST SINGLE (PORTABLE) INDICATION: Intubated COMPARISON: 07/12/2017 FINDINGS: TUBES and LINES: Endotracheal and NG tube are stable. The right upper extremity PICC line remains partially coiled at the base of the neck with tip overlying the right innominate vein. LUNGS: Lungs are not well inflated. There are bibasilar atelectasis. Worsening interstitial edema PLEURA: Trace of right pleural effusion HEART AND MEDIASTINUM: Cardiac size is moderately enlarged. BONES AND SOFT TISSUES: No acute osseous lesion. Soft tissues are unremarkable. UPPER ABDOMEN: No free air under the diaphragm. IMPRESSION: Mild worsening of pulmonary edema Signed by: Dr. Rochelle Carranza M.D. on 07/13/2017 7:07 AM Dictated By: ROCHELLE SAHNI MD 6 Transcribed By: ELMER on 07/13/17706 COPY TO: SRINIVAS STEPHENS MD CHEST SINGLE (PORTABLE) [place] [address] Patient Name: RADHA JIANG MR #: [id number] : 1965 Age/Sex: 51/M Req #: [id number] Adm Physician: NICOLAS HERNANDEZ MD Ordered by: NICOLAS HERNANDEZ MD Report #: [id number] Location: ICU Room/Bed: [place] [address] Procedure: [id number] DX/CHEST SINGLE (PORTABLE) Exam Date: 07/12/17 Exam Time: 0505 REPORT STATUS: Signed EXAM: CHEST SINGLE (PORTABLE), AP 1 view DATE: 07/12/2017 4:39 AM Time stamp on exam: 0515 hours INDICATION: Intubation COMPARISON: AP view of the chest July 11, 2017 FINDINGS: LINES/TUBES: Stable position endotracheal tube, right approach PICC and partially visualized nasal/orogastric tube. LUNGS: Stable bilateral interstitial and alveolar opacities. PLEURA: Indeterminate for small bilateral layering pleural effusions. HEART AND MEDIASTINUM: Stable appearance BONES AND SOFT TISSUES: No acute findings. IMPRESSION: No interval change Signed by: Dr. Roya Becerra M.D. on 07/12/2017 6:17 AM Dictated By: ROYA BECERRA MD 6 Transcribed By: ELMER on 07/12/17616 COPY TO: NICOLAS HERNANDEZ MD CHEST XRAY LINE PLACEMENT [place] [address] Patient Name: RADHA JIANG MR #: [id number] : 1965 Age/Sex: 51/M Req #: [id number] Adm Physician: NICOLAS HERNANDEZ MD Ordered by: NICOLAS HERNANDEZ MD Report #: [id number] Location: ICU Room/Bed: ICU [facility] Procedure: [id number] DX/CHEST XRAY LINE PLACEMENT Exam Date: 07/11/17 Exam Time: 1043 REPORT STATUS: Signed EXAM: CHEST XRAY LINE PLACEMENT DATE: 07/11/2017 10:11 AM INDICATION: PICC line COMPARISON: 07/11/2017 at 0529 FINDINGS: ET tube and NG tube stable. Right PICC present with tip overlying SVC. Image quality degraded by body habitus, low lung volumes, and underpenetration. Prominence of the cardiac silhouette, probable mild edema, and possible trace effusions. IMPRESSION: Right PICC placement. Exam otherwise similar given limitations. Signed by: Dr. Agnes Sterling MD on 07/11/2017 10:54 AM Dictated By: AGNES STERLING MD 105 Transcribed By: ELMER on 07/11/171053 COPY TO: NICOLAS HERNANDEZ MD CHEST SINGLE (PORTABLE) [place] [address] Patient Name: RADHA JIANG MR #: [id number] : 1965 Age/Sex: 51/M Req #: [id number] Adm Physician: NICOLAS HERNANDEZ MD Ordered by: NICOLAS HERNANDEZ MD Report #: [id number] Location: ICU Room/Bed: ICU [facility] Procedure: [id number] DX/CHEST SINGLE (PORTABLE) Exam Date: 07/11/17 Exam Time: 0515 REPORT STATUS: Signed EXAM: CHEST SINGLE (PORTABLE), AP 1 view DATE: 07/11/2017 5:15 AM Time stamp on exam: 0529 hours INDICATION: CHF COMPARISON: AP view of the chest July 08, 2017 FINDINGS: LINES/TUBES: Stable endotracheal tube and poorly visualized nasal/orogastric tube. The right approach PICC is now pointing cranially and coiled within the internal jugular vein. LUNGS: Stable bilateral perihilar atelectasis and likely pulmonary edema PLEURA: No effusions or pneumothorax. HEART AND MEDIASTINUM: Stable appearance BONES AND SOFT TISSUES: No acute findings. IMPRESSION: The tip of a right approach PICC is now coursing cranially and coiled within the right internal jugular vein. Signed by: Dr. Roya Becerra M.D. on 07/11/2017 6:32 AM Dictated By: ROYA BECERRA MD 1 Transcribed By: ELMER on 07/11/17631 COPY TO: NICOLAS HERNANDEZ MD CT CHEST W [place] [address] Patient Name: RADHA JIANG MR #: [id number] : 1965 Age/Sex: 51/M Req #: [id number] Adm Physician: NICOLAS HERNANDEZ MD Ordered by: ANDRE VALENTE MD Report #: [id number] Location: ICU Room/Bed: ICU [facility] Procedure: [id number] CT/CT CHEST W Exam Date: 07/09/17 Exam Time: 1235 REPORT STATUS: Signed PROCEDURE: CT scan of the chest WITH intravenous contrast, using standard protocol. TECHNIQUE: The chest was scanned utilizing a multidetector helical scanner from the lung apex through the level of the adrenal glands after the IV administration of 55 cc of Isovue 370. Coronal and sagittal multiplanar reformations were obtained. COMPARISON: None. INDICATIONS: PULMONARY EMBOLISM FINDINGS: Lines/tubes: Endotracheal tube has distal tip approximately 3.9 cm above the don. Enteric tube in place, with distal tip in the proximal stomach fundus. Right-sided PICC line has distal tip in the right atrium. Lungs and Airways: No filling defects in the main, right or left pulmonary arteries to their segmental levels to suggest pulmonary embolism. Bilateral lower lobe moderate compressive atelectasis and mild compressive atelectasis of the right upper lobe. Focal ground glass opacity in the right upper lobe (for example series 3, images 34). Linear opacities in the right upper lobe (series 3, image 40). No pulmonary nodules. Mild centrilobular septal thickening in the upper lobes. Airways are clear, without endobronchial lesions. Pleura: Small to moderate right and small left pleural effusions. Heart and mediastinum: Thyroid is unremarkable. Moderate cardiomegaly. Mild atherosclerotic calcification of the coronary arteries and minimal calcification of the thoracic aortic arch. Main pulmonary artery is enlarged, measuring 3.6 cm. Lymph nodes: Several mildly prominent, although subcentimeter upper paratracheal, and lower paratracheal lymph nodes are identified. No enlarged mediastinal, hilar or axillary lymph nodes.. Abdomen: Limited contrast-enhanced views of the upper abdomen show no abnorma lity within the visualized liver and spleen. Adrenal glands are not imaged. Bones: No aggressive lytic or blastic lesion. Multilevel degenerative disc changes in the thoracic spine. IMPRESSION: 1. no CT evidence of pulmonary embolism to the segmental level. 2. Small to moderate right and small left pleural effusions with moderate compressive atelectasis of the lower lobes and mild compressive atelectasis of the right upper lobe. 3. Moderate cardiomegaly. Mild centrilobular septal thickening and focal ground glass opacities in the right upper lobe may be secondary to edema/fluid overload/decompensated CHF. 4. Enlarged main pulmonary artery, suggesting pulmonary hypertension. 5. Subcentimeter lymph nodes in the mediastinum are likely reactive. No enlarged mediastinal, hilar, or axillary lymph nodes. 6. Enteric tube has distal tip in the proximal fundus. Further advancement is recommended. Ernesto Perez M.D. Dictated by: Ernesto Perez M.D. on 07/09/2017 at 15:00 Electronically approved by: Ernesto Perez M.D. on 07/09/2017 at 15:00 Dictated By: ERNESTO PEREZ MD 99 Transcribed By: BRANT on 07/09/17 1500 COPY TO: ANDRE VALENTE MD CHEST XRAY LINE PLACEMENT [place] [address] Patient Name: RADHA JIANG MR #: [id number] : 1965 Age/Sex: 51/M Req #: [id number] Adm Physician: NICOLAS HERNANDEZ MD Ordered by: NICOLAS HERNANDEZ MD Report #: [id number] Location: ICU Room/Bed: ICU [facility] Procedure: [id number] DX/CHEST XRAY LINE PLACEMENT Exam Date: 07/08/17 Exam Time: 2139 REPORT STATUS: Signed EXAM: CHEST XRAY LINE PLACEMENT, AP 1 view DATE: 07/08/2017 9:20 PM Time stamp on exam: 2148 hours INDICATION: PICC placement COMPARISON: AP view of the chest May 08, 2018 at 0552 hours FINDINGS: LINES/TUBES: Interval placement of right approach PICC with the tip at expected location of the atriocaval junction. Stable endotracheal tube and nasal/orogastric tube. LUNGS: Stable bilateral perihilar atelectasis and likely pulmonary edema area and PLEURA: No effusions or pneumothorax. HEART AND MEDIASTINUM: Stable BONES AND SOFT TISSUES: No acute findings. IMPRESSION: Interval placement of right approach PICC with tip at expected location of the atriocaval junction. Otherwise no interval change in appearance of the chest. Signed by: Dr. Roya Becerra M.D. on 07/08/2017 10:19 PM Dictated By: ROYA BECERRA MD 18 Transcribed By: ELMER on 07/08/172218 COPY TO: NICOLAS HERNANDEZ MD CHEST [facility] (PORTABLE) [place] [address] Patient Name: RADHA JIANG MR #: [id number] : 1965 Age/Sex: 51/M Req #: [id number] Adm Physician: NICOLAS HERNANDEZ MD Ordered by: SRINIVAS STEPHENS MD Report #: [id number] Location: ICU Room/Bed: ICU 190 Procedure: [id number] DX/CHEST SINGLE (PORTABLE) Exam Date: Exam Time: REPORT STATUS: Signed EXAM: CHEST SINGLE (PORTABLE), AP 1 view DATE: 07/08/2017 5:48 AM Time stamp on exam: 0552 hours INDICATION: Intubated COMPARISON: AP view of the chest July 07, 2017 FINDINGS: LINES/TUBES: Stable endotracheal tube and nasal/orogastric tube. LUNGS: Stable bilateral perihilar atelectasis and likely pulmonary edema PLEURA: Indeterminate for layering pleural effusions bilaterally HEART AND MEDIASTINUM: Stable enlargement BONES AND SOFT TISSUES: No acute findings. IMPRESSION: No interval change Signed by: Dr. Roya Becerra M.D. on 07/08/2017 6:48 AM Dictated By: ROYA BECERRA MD 7 Transcribed By: ELMER on 07/08/17647 COPY TO: SRINIVAS STEPHENS MD CHEST SINGLE (PORTABLE) [place] [address] Patient Name: RADHA JIANG MR #: [id number] : 1965 Age/Sex: 51/M Req #: [id number] Adm Physician: NICOLAS HERNANDEZ MD Ordered by: ANDRE VALENTE MD Report #: [id number] Location: ICU Room/Bed: [place] [address] Procedure: [id number] DX/CHEST SINGLE (PORTABLE) Exam Date: 07/07/17 Exam Time: 0620 REPORT STATUS: Signed EXAM: CHEST SINGLE (PORTABLE), AP 1 view DATE: 07/07/2017 5:00 AM Time stamp on exam: 0552 hours INDICATION: Intubated COMPARISON: AP view of the chest July 06, 2017 FINDINGS: LINES/TUBES: Endotracheal tube terminates 3 cm above the don. Nasal/orogastric tube courses below the diaphragm out of field of view. LUNGS: Stable bilateral perihilar atelectasis and likely pulmonary edema. PLEURA: Indeterminate for layering pleural effusions. HEART AND MEDIASTINUM: Stable enlargement of the cardiomediastinal silhouette. BONES AND SOFT TISSUES: No acute findings. IMPRESSION: No interval change. Signed by: Dr. Roya Becerra M.D. on 07/07/2017 9:37 PM Dictated By: ROYA BECERRA MD 36 Transcribed By: ELMER on 07/07/172136 COPY TO: ANDRE VALENTE MD CHEST SINGLE (PORTABLE) [place] [address] Patient Name: RADHA JIANG MR #: [id number] : 1965 Age/Sex: 51/M Req #: [id number] Adm Physician: NICOLAS HERNANDEZ MD Ordered by: ANDRE VALENTE MD Report #: [id number] Location: [facility] Room/Bed: [place] [address] Procedure: [id number] DX/CHEST SINGLE (PORTABLE) Exam Date: Exam Time: REPORT STATUS: Signed Portable chest x-ray CPT code 03151 INDICATION: Tube placement COMPARISON: Chest x-ray 1401 hours FINDINGS: Frontal view of the chest obtained at 2041 hours. The image is underpenetrated. The distal tip of the ET tube is not visible. An enteric tube extends past the diaphragm. The cardiac silhouette is enlarged. There are worsening perihilar airspace opacities. Lung volumes are low. No large effusions. There is no pneumothorax. The osseous structures are stable. IMPRESSION: 1. Poor visualization of ET tube due to underpenetration of the image. 2. Worsening perihilar airspace opacities. Signed by: Dr. Carlita Hayward MD on 07/06/2017 9:05 PM Dictated By: CARLITA HAYWARD MD 04 Transcribed By: ELMER on 07/06/172104 COPY TO: ANDRE VALENTE MD CHEST SINGLE (PORTABLE) [place] [address] Patient Name: RADHA JIANG MR #: [id number] : 1965 Age/Sex: 51/M Req #: [id number] Adm Physician: NICOLAS HERNANDEZ MD Ordered by: ONEIDA GREWAL MD Report #: [id number] Location: [facility] Room/Bed: [place] [address] Procedure: [id number] DX/CHEST SINGLE (PORTABLE) Exam Date: 07/06/17 Exam Time: 1400 REPORT STATUS: Signed PROCEDURE: A single AP view of the chest. COMPARISON: Chest x-ray 07/05/2017 1359. INDICATIONS: ET TUBE PLACEMENT FINDINGS: Lines/tubes: ET tube tip is approximate 1.9 cm from the don. Lungs: Lungs are hypoinflated. Worsening perihilar interstitial opacities. Pleura: There is no pleural effusion or pneumothorax. Heart and mediastinum: Mild cardiomegaly. Bones: No acute bony abnormality. IMPRESSION: 1. Low-lying ET tube with tip 1.9 cm from the don. 2. Worsening interstitial edema. Dictated by: Tal Silvestre M.D. on 07/06/2017 at 14:55 Electronically approved by: Tal Silvestre M.D. on 07/06/2017 at 14:55 Dictated By: TAL SILVESTRE MD 54 Transcribed By: BRANT on 07/06/171454 COPY TO: ONEIDA GREWAL MD ECHO COMPLETE (ECHOCARDIOGRAM) [place] [address] Patient Name : RADHA JIANG MR #: [id number] : 1965 Age/Sex: 51/M Adm Physician : NICOLAS HERNANDEZ MD Admit Date : 07/06/17 Location : MED/SURG Room/Bed : [facility] REPORT: Cardiology Report DATE OF STUDY: July 05, 2017 ECHOCARDIOGRAM M-MODE: Dilated left atrium. Left ventricular hypertrophy. Borderline left ventricular contractility. Normal mitral and aortic valves. No pericardial effusion. SECTOR SCAN: Dilated left atrium. Left ventricular hypertrophy. Mildly diminished left ventricular contractility. Ejection fraction is approximately 45%. Mitral, aortic and tricuspid valves are grossly normal. There is no pericardial effusion. CARDIAC DOPPLER STUDY WITH COLOR: Trace tricuspid regurgitation. Pulmonary artery systolic pressure estimated at 26 mmHg. CONCLUSIONS 1. Left ventricular hypertrophy with ejection fraction of approximately 45%. 2. Mildly enlarged left atrium, measuring approximately 4.3 cm. Job#: [id number] cc: NICOLAS HERNANDEZ MD Signature Date Dictated By: DANNY THOMPSON MD Transcribed By: 6Wunderkinder on 07/07/17 <Electronically signed by DANNY THOMPSON MD><<Signature on File>>07/16/17 1029 COPY TO: CHEST SINGLE (NOT PORTABLE) [place] [address] [place] [address] Patient Name: RADHA JIANG MR #: [id number] : 1965 Age/Sex: 51/M Req #: [id number] Adm Physician: Ordered by: VIET GALAN [employer] Report #: [id number] Location: ER Room/Bed: Procedure: [id number] DX/CHEST SINGLE (NOT PORTABLE) Exam Date: 07/05/17 Exam Time: 1355 REPORT STATUS: Signed PROCEDURE: A single AP view of the chest. COMPARISON: None. INDICATIONS: COUGH, DYSPNEA FINDINGS: Lines/tubes: None. Lungs: Limited by shallow inspiration and body habitus. No focal consolidation. Pleura: There is no pleural effusion or pneumothorax. Heart and mediastinum: Enlarged cardiomediastinal silhouette on this AP view. Bones: No acute bony abnormality. IMPRESSION: Enlarged cardiomediastinal silhouette and mild central vascular congestion, accentuated by low lung volumes and technique. No focal consolidation. Dictated by: Tristan Conde M.D. on 07/05/2017 at 14:26 Electronically approved by: Tristan Conde M.D. on 07/05/2017 at 14:26 Dictated By: TRISTAN CONDE MD 1426 COPY TO: VIET GALAN [employer]
[2018-11-29] MEDS ORDERED: ONDANSETRON HCL INJ 2MG/ML 2ML 2 MG/ML VIAL IV NR ×2 (19:15→21:15)
[2018-11-29] MEDS ORDERED: MAGNESIUM/ALUMINUM/SIMETHICONE 30 ML UDC PO NR ×2 (19:15→21:15)
[2018-11-29] MEDS ORDERED: LIDOCAINE VISC 2% SOLN 15 ML UDC PO NR ×2 (19:15→21:00)
[2018-11-29 20:16] LABS: BASOPHILS # (AUTO) 0.1 (0.0-0.1); BASOPHILS % 0.8 % (0.0-1.0); EOSINOPHILS # (AUTO) 0.3 (0.0-0.4); EOSINOPHILS % 2.5 % (0.0-6.0); HEMATOCRIT 50.4 % (38.2-49.6); HEMOGLOBIN 14.7 g/dL (14.0-18.0); LYMPHOCYTES # (AUTO) 3.1 (1.0-3.2); LYMPHOCYTES % 28.4 % (18.0-39.1); MEAN CORPUSCULAR HEMOGLOBIN 23.3 pg (28-32); MEAN CORPUSCULAR HGB CONC 29.2 g/dL (31-35); MONOCYTES # (AUTO) 1.2 (0.2-0.8); MONOCYTES % 10.8 % (4.4-11.3); NEUTROPHILS # (AUTO) 6.2 (2.1-6.9); NEUTROPHILS % 56.9 % (38.7-80.0); PLATELET COUNT 242 x10e3/uL (140-360); RED CELL DISTRIBUTION WIDTH 20.7 % (11.7-14.4)
[2018-11-29 20:26] LABS: INR 1.1; PROTHROMBIN TIME 14.7 seconds (11.9-14.5)
[2018-11-29 20:27] LABS: PARTIAL THROMBOPLASTIN TIME 32.2 seconds (23.8-35.5)
[2018-11-29 20:38] LABS: ALANINE AMINOTRANSFERASE 30 IU/L (0-55); ALBUMIN 3.9 g/dL (3.5-5.0); ALKALINE PHOSPHATASE 73 IU/L (40-150); AMYLASE 118 U/L (25-125); ANION GAP 16.2 mmol/L (8-16); BLOOD UREA NITROGEN 13 mg/dL (7-26); BUN/CREATININE RATIO 13 (6-25); CALCIUM 9.8 mg/dL (8.4-10.2); CARBON DIOXIDE 31 mmol/L (22-29); CHLORIDE 97 mmol/L (98-107); CREATINE KINASE 298 IU/L (30-200); EST GLOMERULAR FILTRATION RATE > 60 ML/MIN (60-); GLUCOSE 87 mg/dL (74-118); LIPASE 25 U/L (8-78); POTASSIUM 4.2 mmol/L (3.5-5.1); SODIUM 140 mmol/L (136-145)
--- NOTE | 2018-11-29 20:46 | Diagnostic Imaging Report ---
EXAMINATION: Right upper quadrant ultrasound CLINICAL INDICATION: Abdominal pain COMPARISON: None DISCUSSION: Transverse and longitudinal images of the right upper quadrant were obtained. The liver is increased in size measuring 19.6centimeters in length in the right midclavicular line and shows increased echogenicity. No focal masses are seen in the liver. There is no intrahepatic biliary dilatation. The common bile duct is normal in caliber and measures 0.4 cm. The main portal vein is normal in caliber and measures 1.3 cm with normal hepatopetal flow. The gallbladder is normal in appearance without stones, wall thickening or pericholecystic fluid. The sonographic Kearns's sign is negative. The visualized portions of the pancreatic body are unremarkable. The right kidney measures 12.8 centimeters in length. 0.3 cm calculus with shadowing. The visualized portions of the great vessels are normal. No free fluid is seen. IMPRESSION: Hepatomegaly with increased echogenicity can be seen in steatosis or other chronic inflammatory condition. 0.3 cm probable calculus within the right kidney. Normal gallbladder. Signed by: Dr. Jeff Villafana M.D. on 11/29/2018 8:43 PM
[2018-11-29] MEDS ORDERED: BELLADONNA ALK/PHENOBARBITAL 5 ML UDC PO SCH (21:00)
--- NOTE | 2018-11-29 22:08 | Diagnostic Imaging Report ---
EXAMINATION: CHEST 2 VIEWS INDICATION: ^RIGHT SIDE PAIN ^[id number] ^2145 ^Y COMPARISON: 07/13/2017 FINDINGS: PA and lateral views TUBES and LINES: None. LUNGS: Lungs are well inflated. Subtle right lower lung field opacities. PLEURA: No pleural effusion or pneumothorax. HEART AND MEDIASTINUM: The cardiomediastinal silhouette is mildly enlarged. Prominent hilar regions. BONES AND SOFT TISSUES: No acute osseous lesion. Soft tissues are unremarkable. UPPER ABDOMEN: No free air under the diaphragm. IMPRESSION: Subtle right lower lung field opacities, representing subsegmental atelectasis and/or developing pneumonia in the appropriate clinical context. Signed by: Dr. Tristan Kong MD on 11/29/2018 10:04 PM
== END 2018-11-29 23:25 | disposition home or self-care (01) ==
LOC: ER 18:15
DX: J18.9 Pneumonia, unspecified organism (principal); R10.11 Right upper quadrant pain; R07.89 Other chest pain; Z95.810 Presence of automatic (implantable) cardiac defibrillator; I10 Essential (primary) hypertension; E11.9 Type 2 diabetes mellitus without complications; E78.5 Hyperlipidemia, unspecified; Z79.82 Long term (current) use of aspirin; Z79.84 Long term (current) use of oral hypoglycemic drugs
CPT/HCPCS: 36415; 71046; 76705; 80053; 82150; 82550; 82553; 83690; 84484; 85025; 85610; 85730; 93005; 99284; J2405